=== PATIENT | female | born 2000 | race Caucasian/White ===

== ENCOUNTER 2022-12-11 19:45 | Inpatient (IN) | payer MEDICAID, SELFPAY ==
[2022-12-11] VITALS (42 sets, daily range): BP systolic 80–139; BP diastolic 54–86; PULSE 57–141; RESP 18–29; TEMP 34.5–36.9; O2SAT 64–98
--- NOTE | 2022-12-11 | ECG_ITS ---
Measurements Intervals [place] Rate: 124 P: 82 DC: 133 QRS: 61 QRSD: 101 T: 73 QT: 336 QTc: 484 Interpretive Statements SINUS TACHYCARDIA ST DEVIATION AND MODERATE T-WAVE ABNORMALITY, CONSIDER INFEROLATERAL ISCHEMIA [-0.1+ mV T WAVE IN II/aVF] COMPARED TO ECG 12/11/2022 20:17:32 NO SIGNIFICANT CHANGES Electronically Signed On 12-12-2022 14:20:44 CDT by Gina Narvaez M.D.
--- NOTE | ~2022-12-11 | XR_ITS ---
Portable chest x-ray Comparison: 12/11/2022 Clinical History: Respiratory failure Findings: Endotracheal tube and NG tube are in satisfactory positions. There is hazy left infrahilar airspace disease. Right lung clear. Cardiomediastinal silhouette is stable. Bones and soft tissues are unremarkable. Impression: Hazy left infrahilar airspace disease. Findings are consistent with pneumonia, either lingular or lef t lower lobe. Support tubes, as above. Reviewed, dictated and finalized at location . Impression: Hazy left infrahilar airspace disease. Findings are consistent with pneumonia, either lingular or left lower lobe. Support tubes, as above.
--- NOTE | ~2022-12-11 | CT_ITS ---
EXAMINATION: CT chest abdomen pelvis w con DATE: 12/12/2022 00:03 INDICATION: Chest injury. TECHNIQUE: Computed tomography (CT) of the chest, abdomen, and pelvis was performed with 100 mL Omnip aque 350 intravenous contrast. Automated exposure control and iterative reconstruction technique were employed. The dose-length product was 509.67 mGy-cm. COMPARISON: None FINDINGS: CHEST CT: There are centrilobular nodules and airspace opacities involving the upper lobes and lower lobes, lef t worse than right, consistent with pneumonia. No pleural effusion. The heart size is normal. No gale cardial effusion. The endotracheal tube tip is in expected position above the merlyn. The nasogastric tube tip is in the stomach. ABDOMEN/PELVIS CT: The liver, gallbladder, spleen, pancreas, adrenal glands, and kidneys are normal. There are no dilate d loops of bowel. There is physiologic fluid in the pelvis. There are no pathologically enlarged lymp h nodes. There is a left groin catheter with tip in left external iliac vein. The bones are unremarka ble. IMPRESSION: 1. Pneumonia involving the upper lobes and lower lobes, left worse than right. Reviewed, dictated and finalized at location E.
--- NOTE | ~2022-12-11 | XR_ITS ---
XR chest 1V portable DATE: 12/13/2022 05:42 INDICATION: Respiratory failure TECHNIQUE: Portable AP chest on 12/13/2022 at 0510 hours COMPARISON: 12/12/2022 portable AP chest at 0525 hours FINDINGS: ET tube in satisfactory position 4.1 cm above merlyn. NG tube in stomach. No central venous lines are noted. Normal heart size. No hilar or mediastinal enlargement. There is mild diminished left lower lung infiltrate since 12/12/2022. No pulmonary infiltrate or consolidation, pleural effusion or pulmonary vascular congestion or pneumo thorax is noted otherwise. IMPRESSION: Improvement of left lower lung infiltrate since 12/12/2022 Reviewed, dictated and finalized at location A.
--- NOTE | ~2022-12-11 | CT_ITS ---
EXAMINATION: CT brain wo con DATE: 12/11/2022 21:55 INDICATION: Seizure. TECHNIQUE: Computed tomography (CT) of the head was performed without intravenous contrast. The mA wa s adjusted according to patient size. Iterative reconstruction technique was employed. The dose-lengt h product was 605.33 mGy-cm. COMPARISON: None FINDINGS: There is no intracranial hemorrhage, acute infarction, or abnormal intracranial mass lesion . The ventricles are normal in size. The paranasal sinuses are clear. The orbits are normal. The mast oid air cells are normal. IMPRESSION: 1. Normal brain. Reviewed, dictated and finalized at location E. IMPRESSION: 1. Normal brain.
--- NOTE | ~2022-12-11 | XR_ITS ---
EXAMINATION: XR chest 1V portable DATE: 12/15/2022 05:53 INDICATION: Respiratory failure. TECHNIQUE: A single frontal view of the chest was obtained. COMPARISON: Chest single view 12/13/2022, chest CT 12/11/2022 FINDINGS: There are airspace opacities in left lower lobe. No pleural effusion or pneumothorax. The h eart size is normal. IMPRESSION: 1. Worsened left lower lobe airspace opacities, consistent with pneumonia. Reviewed, dictated and finalized at location A.
--- NOTE | ~2022-12-11 | US_ITS ---
Limited Abdominal Sonogram: Real-time sonographic imaging of the right upper quadrant was performed. Clinical History: Transaminitis Findings: The liver appears normal with no evidence of mass lesion or bile duct dilatation. Main por levy vein demonstrates normal direction of flow. The gallbladder is well distended, and appears normal with no evidence of gallstone or wall thickening. The common bile duct measures 3 mm. The visualize d pancreas, aorta, and IVC are unremarkable. Right kidney measures 10.6 cm in length, without hydrone phrosis, but is mildly echogenic. Impression: Mildly echogenic right kidney. Correlate for chronic medical renal disease. No other significant findings. Reviewed, dictated and finalized at location . Impression: Mildly echogenic right kidney. Correlate for chronic medical renal disease. No other significant findings.
--- NOTE | ~2022-12-11 | XR_ITS ---
EXAMINATION: XR chest 1V portable DATE: 12/11/2022 20:31 INDICATION: Intubated. TECHNIQUE: A single frontal view of the chest was obtained on 2 radiographs. COMPARISON: None. FINDINGS: There is no pneumonia, pleural effusion, or pneumothorax. The heart size is normal. The end otracheal tube tip is 5.0 cm above the merlyn. The nasogastric tube tip is in the stomach. IMPRESSION: 1. No acute cardiopulmonary disease. Reviewed, dictated and finalized at location E.
--- NOTE | ~2022-12-11 | XR_ITS ---
EXAMINATION: XR chest 1V portable DATE: 12/16/2022 05:56 INDICATION: Pneumonia. TECHNIQUE: A single frontal view of the chest was obtained. COMPARISON: Chest single view 12/15/2022 FINDINGS: There are airspace opacities in left mid and lower lung zones. No pleural effusion or pneum othorax. The heart size is normal. IMPRESSION: 1. Stable airspace opacities in left mid and lower lung zones, consistent with pneumonia. Reviewed, dictated and finalized at location A.
[2022-12-11] MEDS: SODIUM CHLORIDE 0.9% IV 1,000 ML 999 ML IV CONT ×2 (19:53→21:31)
[2022-12-11] MEDS: NALOXONE HCL INJ 2 MG/2 ML AMP IV PUSH (19:53)
--- NOTE | 2022-12-11 19:53 | ED.GENADULT ---
HPI - General Adult General Chief complaint: Cardiac Arrest/CPR Stated complaint: full arrest History of Present Illness HPI narrative: 22-year-old male transitioning to female presented to ED for evaluation of seizure activity lasted approximately 30 minutes. Family states that the patient is on hormonal placement therapy and does take Depakote 1000 mg twice daily for reported seizures. They report the patient does have approximately 1 seizure a week. Family states that the patient has been staying with a boyfriend over the last few days and has potentially not been taking their Depakote Related Data Home Medications Medication Instructions Recorded Confirmed buspirone 15 mg tablet 15 mg PO BID 12/11/22 12/11/22 divalproex 500 mg tablet,extended 1,000 mg PO BID 12/11/22 12/11/22 release 24 hr estradiol 1 mg tablet 3 mg PO HS 12/11/22 12/11/22 estradiol 2 mg tablet 2 mg PO DAILY 12/11/22 12/11/22 fluvoxamine 150 mg 150 mg PO BID 12/11/22 12/11/22 capsule,extended release 24 hr lithium carbonate 300 mg capsule 300 mg PO HS 12/11/22 12/11/22 progesterone micronized 100 mg 100 mg PO HS 12/11/22 12/11/22 capsule spironolactone 50 mg tablet 50 mg PO HS 12/11/22 12/11/22 Allergies Allergy/AdvReac Type Severity Reaction Status Date / Time SSRIs AdvReac Other Uncoded 12/11/22 22:50 Review of Systems Review of Systems: ROS unobtainable: Yes unobtainable due to medical condition PMFSH Past Medical History Medical History Borderline personality disorder OCD (obsessive compulsive disorder) Panic anxiety syndrome Seizure disorder 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 She went to school through the 9th grade and then quit due to difficulties learning due to her seizures. She has been transitioning from male to female since age 15. She is unemployed. She uses alcohol and marijuana on occasion. She is a lifelong nonsmoker. Code status: Full code Surrogate decision maker: Mother Smoking status: Never smoker Alcohol intake: unknown Substance use: current Substance use type: marijuana Gender identity (if verbalized by the patient): Female Spiritual care concerns: No Exam Narrative: APPEARANCE: Well appearing, no pain, no distress, well-nourished. HEAD: normocephalic, atraumatic. EYES: PERRLA/EOMI, conjunctivae clear. NOSE: Normal no drainage EARS:TMS clear with good light reflex. THROAT: Pharynx clear, no exudate. NECK: Supple. No adenopathy, no masses. RESPIRATORY: Airway patent, respirations nonlabored. Clear to auscultation bilaterally, no rales, rhonchi, wheezing. CARDIOVASCULAR: Regular rate and rhythm without murmurs rubs or gallops. ABDOMINAL: Soft, nontender, nondistended, normal bowel sounds MUSCULOSKELETAL: Moves all extremities. Strength/ROM intact, No edema, No calf tenderness. NEURO: Alert. Cranial nerves II through XII intact. Grossly intact SKIN: Warm, dry. 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 Upon arrival to the ED patient was in normal sinus rhythm and was not protecting her airway and had altered mental status. Ultimately patient was intubated. Head CT showed no acute intracranial abnormality. Central line was placed in th
[2022-12-11] MEDS: RAPID SEQUENCE INTUBATION KIT 1 EACH (20:02)
[2022-12-11 20:07] LABS: Basophils Absolute Auto 0.1 K/mm3 (0.0-0.1); Basophils Percent Auto 0.4 % (0.2-1.2); Eosinophils Absolute Auto 0.2 K/mm3 (0-0.3); Eosinophils Percent Auto 1.6 % (0-4.4); Hematocrit 44.6 % (37.0-47.0); Hemoglobin 12.1 g/dL (12.0-15.0); Immature Granulocyte Percent A 4.9 % (0-0.5); Immature Platelet Fraction Pct 6.7 % (0.9-11.2); Lymphocytes Absolute Auto 7.78 K/mm3 (0.9-3.2); Lymphocytes Percent Auto 54.8 % (18.3-44.2); Mean Corpuscular HGB Conc 27.1 g/dl (32-36); Mean Platelet Volume 12.9 fl (7.4-10.4); Monocytes Absolute Auto 0.8 K/mm3 (0.1-0.6); Monocytes Percent Auto 5.8 % (2.6-8.5); Neutrophils Absolute Auto 4.6 K/mm3 (1.3-6.7); Neutrophils Percent Auto 32.5 % (45.5-73.1); Platelet Count Result 203 k/mm3 (150-375); Red Blood Count 3.78 M/mm3 (4.2-5.4); Red Cell Distribution Width 11.4 % (11.5-14.5); White Blood Count 14.2 K/mm3 (4.5-10.0)
[2022-12-11 20:16] LABS: Acetaminophen < 10 ug/mL (10-30); Ethanol < 10 mg/dL (<10)
[2022-12-11 20:19] LABS: INR 2.9; Prothrombin Time 32.8 Seconds (11.1-14.7)
[2022-12-11 20:28] LABS: Alanine Aminotransferase 65 U/L (6-35); Albumin Level 4.1 g/dL (3.5-5.1); Alkaline Phosphatase 74 U/L (38-126); Aspartate Amino Transferase 114 U/L (14-36); Bilirubin,Total 0.4 mg/dL (0.2-1.3); Blood Urea Nitrogen 9 mg/dL (7-17); Calcium 10.5 mg/dL (8.4-10.2); Carbon Dioxide < 5 mmol/L (22-30); Chloride 103 mmol/L (98-107); Estimated Glomerular Filt Rate 35; Glucose 299 mg/dL (65-110); Magnesium 3.5 mg/dL (1.6-2.3); Potassium 4.5 mmol/L (3.4-5.0); Sodium 146 mmol/L (137-145)
[2022-12-11] MEDS: PROPOFOL IV EMULSION 100 ML 1.8 MG (20:30)
[2022-12-11 20:34] LABS: Phenytoin Dilantin < 3 ug/mL (10-20); Phosphorus 14.4 mg/dL (2.5-4.5)
[2022-12-11 20:45] LABS: Triglycerides 213 mg/dL (<150); Valproic Acid 24.8 ug/mL (50-120)
--- NOTE | 2022-12-11 21:03 | PC.NURSE ---
1939 - Pt arrived to ER, bagging in process 1941 - report given, pt placed on monitor and defib HR in 30s. 1945 - atropine given by LITZY Alford VORB by Dr. Kate 1947 - IV 20 RAC placed by LITZY Watson 1953 - Narcan given in [facility] by LITZY Watson 1954- 80/54, 90HR, RR25, 64% NRB 2001 - Dr. Kate decided to intubate, resp called, RSI kit pulled 2002 - Dr. Kate VORB 50 succ, 20 etomidate. 2004 - 57/31, 84HR, RR 28, 69% NRB 2007 - 59/32, 81HR, 20RR, 75% NRB 2008 - 50 succ, given by LITZY Watson in [facility] 20 etomidate given by LITZY Fall in [facility]. 2010 - Pt intubated by Dr. Kate, equal breath sounds noted, bilat chest rise and fall. 23 @ the tooth, 7.5, bagging by respiratory 2011 - 81/43, 106HR, 19RR, 98% bagging. 2012 - pt placed on vent by RT 2014 - IV 20 L hand placed by LITZY Alford. Dr. Kate VORB propofol sedation 2015 - 87/47, 116HR, 24RR, 98% on vent 2019 - 91/50, 110HR, 22RR, 97% on vent 2024 - OG placed by junior technical writer 2026 - temp calero placed by LITZY Alford 2029 - propofol started at 5mcg/min per protocol in [facility] for sedation EDP, Dr. Kate at bedside for placement of central line. 2099 - propofol infusion increased to 10 mcg/min per protocol at Dr. Kate request.
[2022-12-11 21:08] LABS: Platelet Estimate Adequate (Adequate)
[2022-12-11 21:09] LABS: Anisocytosis 1+ (NORMAL); Macrocytosis 1+ (NORMAL); Schistocytes None Seen (NORMAL)
[2022-12-11 21:18] LABS: Partial Thromboplastin Time > 200.0 SECONDS (22.3-36.8)
[2022-12-11 21:21] LABS: Alveolar/Arterial O2 Gradient 198.6 mmHg; Base Excess ABG -29.4 mEq/l (+/-2.0); Fractional Inspired Oxygen 70 %; HCO3 ABG 5.7 mEq/l (22.0-26.0); Oxygen Content ABG 18.9 %vol (16.0-22.0); Oxygen Saturation ABG 98.8 % (95.0-100.0); Oxyhemoglobin 97.4 % THb (90.0-100.0); PCO2 ABG 41.1 mmHg (35.0-45.0); PO2 ABG 256.3 mmHg (80.0-100.0); PO2 FiO2 Ratio Arterial Blood 3.66 %; Total Hemoglobin 13.4 g/dL (12.0-18.0)
[2022-12-11 21:23] LABS: Modified Allen's Test Pass; Site Drawn RIGHT RADIAL; pH ABG 6.761 (7.350-7.450)
[2022-12-11 21:24] LABS: Arterial Blood Gas PEEP 5 cmH2O; Arterial Blood Gas Tidal Volume 380 ml; Arterial Blood Gas Vent Mode CMV; Arterial Blood Gas Ventilator rate 24 /MIN; Device VENTILATOR
[2022-12-11] MEDS: SODIUM BICARBONATE 8.4% 50 MEQ/50 ML SYRINGE IV PUSH (21:29)
[2022-12-11 21:35] LABS: Appearance Urine Clear (Clear); Bilirubin Urine Negative (Negative); Blood Urine 3+ (Negative); Color Urine Light Yellow (Yellow); Glucose Urine UA 2+ mg/dL (Negative); Ketones Urine Negative (Negative); Leukocyte Esterase Ur Negative LEU/UL (Negative); Nitrate Urine Negative (Negative); Protein Urine 3+ mg/dL (Negative); Specific Grav Ur 1.025 (1.001-1.035); Urobilinogen Urine 0.2 mg/dL (<2.0); pH Urine 6.5 (5.0-9.0)
[2022-12-11] MEDS: SODIUM CHLORIDE 0.9% IV 1,000 ML 250 ML IV CONT (21:41)
[2022-12-11 21:50] LABS: Amphetamine Screen Urine Negative (Negative); Barbiturate Screen Urine Negative (Negative); Benzodiazepines Screen Urine Negative (Negative); Cannabinoid Screen Urine Positive (Negative); Cocaine Screen Urine Negative (Negative); Methadone Screen Urine Negative (Negative); Opiate Screen Urine Negative (Negative); Phencyclidine Screen Urine Negative (Negative)
[2022-12-11 21:51] LABS: Bacteria Urine Rare /hpf; Squamous Epithelial Cell Urine Occasional /hpf (Few)
--- NOTE | 2022-12-11 22:00 | PC.NURSE ---
Pt temp calero ready 94.6F. EDP notifed. Pt placed on jayshree hugger.
[2022-12-11 22:01] LABS: Add Urine Microscopic? YES
[2022-12-11 22:11] LABS: Lactic Acid Reflex 17.4 mmol/L (0.7-2.0)
[2022-12-11] MEDS: SODIUM BICARBONATE 8.4% 150 MEQ in DEXTROSE 5% 1,000 ML 950 ML 50 MEQ IV CONT (22:21)
[2022-12-11 22:25] LABS: Troponin I 0.013 ng/mL (0.000-0.034)
[2022-12-11] MEDS: FENTANYL 2,500MCG/NS250ML(*CRX 2,500 MCG/250 ML BAG IV CONT (22:35)
[2022-12-11] MEDS: levETIRAcetam 1000MG/NACL100ML 1,000 MG/100 ML BAG 400 MG IVPB (22:37)
[2022-12-11] MEDS: fentaNYL CITRATE INJ (*CRX) 100 MCG/2 ML VIAL IV PUSH (22:38)
[2022-12-11 22:50] LABS: Alveolar/Arterial O2 Gradient 221.8 mmHg; Base Excess ABG -18.8 mEq/l (+/-2.0); Carboxyhemoglobin 0.3 % THb (0-2.0); Fractional Inspired Oxygen 60 %; HCO3 ABG 10.2 mEq/l (22.0-26.0); Methemoglobin ABG 0.7 %THb (0-1.5); Oxygen Content ABG 18.4 %vol (16.0-22.0); Oxygen Saturation ABG 98.5 % (95.0-100.0); Oxyhemoglobin 96.9 % THb (90.0-100.0); PCO2 ABG 35.2 mmHg (35.0-45.0); PO2 ABG 167.3 mmHg (80.0-100.0); PO2 FiO2 Ratio Arterial Blood 2.79 %; Reduced Hemoglobin 2.1 %THb (0-5.0); Total Hemoglobin 13.3 g/dL (12.0-18.0)
[2022-12-11 22:51] LABS: Device VENTILATOR; Modified Allen's Test Pass; Site Drawn RIGHT RADIAL; pH ABG 7.082 (7.350-7.450)
[2022-12-11 22:52] LABS: Arterial Blood Gas PEEP 5 cmH2O; Arterial Blood Gas Tidal Volume 380 ml; Arterial Blood Gas Vent Mode CMV; Arterial Blood Gas Ventilator rate 24 /MIN
--- NOTE | 2022-12-11 23:07 | ECG_ITS ---
Measurements Intervals [place] Rate: 120 P: 79 ND: 152 QRS: 52 QRSD: 114 T: 78 QT: 417 QTc: 591 Interpretive Statements SINUS TACHYCARDIA ABNORMAL RHYTHM ECG NO PREVIOUS ECG AVAILABLE FOR COMPARISON Electronically Signed On 12-12-2022 14:17:59 CDT by Gina Narvaez M.D.
[2022-12-11] MEDS: PROPOFOL IV EMULSION 100 ML 7.06 MG IV CONT (23:13)
[2022-12-11 23:29] LABS: Creatine Kinase 610 U/L (30-135)
[2022-12-12] VITALS (55 sets, daily range): BP systolic 79–116; BP diastolic 46–71; PULSE 60–117; RESP 21–25; TEMP 35.8–37.8; O2SAT 91–100; BMI 19.1
--- NOTE | 2022-12-12 | ECHO_ITS ---
Patient Info Name: Yee Clemons Age: 22 years : 2000 Gender: Female Ht: 69 in Wt: 129 lbs BSA: 1.68 m2 HR: 92 bpm BP: 100 / 63 mmHg Heart Rhythm: Sinus Rhythm Technical Quality: Fair Exam Date: 12/12/2022 2:44 PM Exam Location: [facility] Pulmonary Patient Status: Inpatient Admit Date: 12/12/2022 Staff Ordering Physician: Emerson Chan MD Cardiology Fellow: Key Groves RDCS Attending Provider: Mckenzie Medellin DO Referring Physician: Dustin SORIANO; Exam Type: CA echo doppler color flow Study Info Indications - Cardiac arrest Complete two-dimensional, color flow and Doppler transthoracic echocardiogram is performed. Summary 1. Complete two-dimensional, color flow and Doppler transthoracic echocardiogram is performed. 2. Left ventricular chamber dimension is normal. 3. Left ventricular systolic function is normal, estimated at 55-60%. 4. There is no increased left ventricular wall thickness. 5. The left ventricular diastolic function is normal. 6. Dilated inferior vena cava with <50% collapse upon inspiration consistent with elevated right atrial pressure, 15 mmHg. 7. Recommend limited echo once the patient is extubated to re-evaluate her EF and her aortic valve as the image quality is suboptimal given off axis imaging since the patient is ventilated and supine. Left Ventricle Left ventricular chamber dimension is normal. Left ventricular systolic function is normal, estimated at 55-60%. There is no increased left ventricular wall thickness. The left ventricular diastolic function is normal. Right Ventricle Right ventricular chamber dimension is normal. Right ventricular systolic function is normal. Left Atria Left atrial chamber dimension is normal. Right Atria Right atrial chamber dimension is normal. Atrial Septum Intact interatrial septum visualized by color flow imaging. Aortic Valve The aortic valve is probable trileaflet. There is mild aortic valve sclerosis. There is no aortic valve stenosis. There is trace aortic valve regurgitation. Pulmonic Valve The pulmonic valve is normal. Mitral Valve The mitral valve has normal leaflets. There is no mitral valve stenosis. There is trace mitral valve regurgitation. Tricuspid Valve The tricuspid valve leaflets are normal. There is no significant tricuspid valve stenosis. There is trace tricuspid valve regurgitation. Other Findings Recommend limited echo once the patient is extubated to re-evaluate her EF and her aortic valve as the image quality is suboptimal given off axis imaging since the patient is ventilated and supine. Pericardium/Pleural The pericardium appears normal. There is trivial pericardial effusion. Inferior Vena Cava Dilated inferior vena cava with <50% collapse upon inspiration consistent with elevated right atrial pressure, 15 mmHg. Aorta The aortic root size at the sinus of Valsalva is normal. Left Ventricular Outflow Tract Name Value Normal LVOT 2D LVOT Diameter 2.0 cm LVOT Doppler LVOT Peak Gradient 2 mmHg LVOT Mean Gradient 1 mmHg LVOT VTI 9 cm LVOT VTI/AV VTI Ratio 0
--- NOTE | 2022-12-12 00:04 | PM.IMHP ---
H&P: HPI History of Present Illness Date/Time: 12/12/22 00:04 Chief Complaint: Seizure Narrative: 22-year-old transgender female with a past medical history of borderline personality disorder, OCD, anxiety and panic disorder, as well as social pragmatic communication disorder and epilepsy who presented to the ER via EMS from boyfriend's house with status epilepticus with seizure lasting 30 minutes. The patient has a long time history of tonic clonic seizures since the age of 12 or 13 years old. She has been having increasing frequency of seizures at least once per week this summer because she has not been compliant with her seizure medications. She had been away from home for the last 3 days staying with her boyfriend when she was known to not be taking her seizure medications. Her boyfriend witnessed her seizure. She called her family members who then told the boyfriend to call EMS if the patient continued to seize. They called the family a few minutes later and told them that she quit breathing. EMS was called at that time. On arrival bystanders were performing CPR. EMS resume CPR and a Jourdan device was utilized. Patient received 2 rounds of epinephrine with return of pulse. Patient was bradycardic with a rate of 30 in the field. She received fluid bolus EN route via an IO in the left leg. On arrival to the ER patient's heart rate was in the 110s. At some point the patient received atropine in the ER and her heart rate dropped to 57. I am assuming that this was done to see with patient's underlying rhythm was. Patient then returned into the 130s for heart rate. Evidently the patient had was not protecting her airway on arrival to the ER and was intubated. Chest x-ray was reviewed ET tube was 5 cm above the merlyn but CT of the chest abdomen pelvis performed later in the ER stay demonstrated appropriate position of ET tube. After intubation and stabilization the patient did wake up and was responding appropriately to the ER per ER report. Patient was giving the thumbs-up sign and shaking her head yes and no. CT did demonstrate bilateral upper lobe pneumonia patient had Unasyn ordered but not given. The patient was noted to be markedly acidotic in the ER and was started on a bicarb drip. She was started on sedation with propofol. And fentanyl was added. CT scan head in the ER demonstrated no acute intercranial process. Patient has central line placed in the right groin in the ER. She received L of normal saline. She has severe lactic acidosis with a lactic acid of 17.4. She received bicarb drip. Patient's mother reports that the patient takes lithium as needed. She denies patient is expressing any thoughts to hurt herself. Patient does not use drugs. She will occasionally drink alcoholic beverage does not have heavy alcohol consumption. She frequently smokes marijuana. Patient has been transitioning from male to female since about 15 years old. She is taking hormone therapy but has not had any surgical procedures. Patient's mother reports that when the patient does have seizures she usually does vomit with them. CT in the ER did demonstrate bilateral pneumonia. Patient will be treated with antibiotic therapy for likely aspiration. Source of information: Patient's mother who was at bedside. External medication reconciliation. 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
[2022-12-12 00:27] LABS: Reflex Lactic Acid Yes or No Add Lactic
[2022-12-12 00:36] LABS: Lactic Acid Reflex 11.4 mmol/L (0.7-2.0)
--- NOTE | 2022-12-12 02:05 | ADMGEN ---
This patient, Yee Clemons, was admitted to Intensive Care Unit-6. Patient/family oriented to hospital policies and general routines including ID bracelet, bed and alarms, visiting hours, pain management, procedures, bathroom and other care routines, personal items, smoking policy, room service/diet, and visiting hours. Information on how to activate the Rapid Response Team has been discussed. Patient/Family are encouraged to report perceived risks to care and to ask questions if they do not understand what they are told or what they should do.
[2022-12-12 02:08] LABS: Lactic Acid 6.3 mmol/L (0.7-2.0)
[2022-12-12 02:38] LABS: Glucose Point of Care 129 mg/dl (65-105)
[2022-12-12 03:01] LABS: Hemoglobin 12.5 g/dL (12.0-15.0); Mean Corpuscular HGB Conc 33.8 g/dl (32-36); Mean Corpuscular Hemoglobin 32.7 pg (26-34); Mean Corpuscular Volume 96.9 fl (80-100); Mean Platelet Volume 10.2 fl (7.4-10.4); Platelet Count Result 175 k/mm3 (150-375); Red Blood Count 3.82 M/mm3 (4.2-5.4); Red Cell Distribution Width 11.9 % (11.5-14.5)
[2022-12-12] MEDS: metroNIDAZOLE 500 MG/ISO 100ML 500 MG/100 ML BAG 100 MG IVPB ×4 (03:10→20:33)
[2022-12-12] MEDS: CEFEPIME 2 GM/NS 50 ML 2 GM/50 ML BAG IVPB ×2 (03:10→14:07)
[2022-12-12 03:12] LABS: INR 1.7; Prothrombin Time 21.3 Seconds (11.1-14.7)
[2022-12-12 03:13] LABS: Fibrinogen 165 mg/dl (215-510); Partial Thromboplastin Time 47.5 SECONDS (22.3-36.8)
[2022-12-12 03:34] LABS: Total Cells Counted 100
[2022-12-12 03:35] LABS: Band Neutrophils Percent 13 % (0-6); Lymphocytes Percent Manual 12 % (18-44); Monocytes Percent Manual 2 % (3-9); Neutrophils Percent Manual 73 % (46-73); Platelet Estimate Adequate (Adequate); Schistocytes None Seen (NORMAL)
[2022-12-12 03:39] LABS: D Dimer > 20.00 ug/mL (<0.48)
[2022-12-12 03:59] LABS: Lactic Acid Reflex 5.3 mmol/L (0.7-2.0)
[2022-12-12 05:08] LABS: Lithium < 0.2 mmol/L (0.6-1.2)
[2022-12-12 05:34] LABS: Alveolar/Arterial O2 Gradient 107.1 mmHg; Base Excess ABG -8.3 mEq/l (+/-2.0); Carboxyhemoglobin 0.2 % THb (0-2.0); Fractional Inspired Oxygen 35 %; HCO3 ABG 16.1 mEq/l (22.0-26.0); Methemoglobin ABG 0.4 %THb (0-1.5); Oxygen Content ABG 17.6 %vol (16.0-22.0); Oxygen Saturation ABG 97.8 % (95.0-100.0); Oxyhemoglobin 96.4 % THb (90.0-100.0); PCO2 ABG 29.9 mmHg (35.0-45.0); PO2 ABG 107.7 mmHg (80.0-100.0); PO2 FiO2 Ratio Arterial Blood 3.08 %; Total Hemoglobin 12.9 g/dL (12.0-18.0); pH ABG 7.348 (7.350-7.450)
[2022-12-12 05:36] LABS: Device VENTILATOR; Modified Allen's Test Pass; Site Drawn LEFT RADIAL
[2022-12-12 05:37] LABS: Arterial Blood Gas PEEP 5 cmH2O; Arterial Blood Gas Tidal Volume 380 ml; Arterial Blood Gas Vent Mode CMV; Arterial Blood Gas Ventilator rate 24 /MIN
[2022-12-12] MEDS: PROPOFOL IV EMULSION 100 ML 14.11 MG IV CONT (06:00)
--- NOTE | 2022-12-12 06:00 | ECG_ITS ---
Measurements Intervals [place] Rate: 85 P: 87 [place]: 123 QRS: 64 QRSD: 101 T: 82 QT: 342 QTc: 407 Interpretive Statements SINUS RHYTHM COMPARED TO ECG 12/11/2022 23:20:01 SINUS RHYTHM NOW PRESENT Electronically Signed On 12-12-2022 14:26:07 CDT by Gina Narvaez M.D.
[2022-12-12 06:34] LABS: Albumin Level 2.7 g/dL (3.5-5.1); Alkaline Phosphatase 85 U/L (38-126); Anion Gap 9 mmol/L (8-16); Aspartate Amino Transferase 440 U/L (14-36); Bilirubin,Total 0.2 mg/dL (0.2-1.3); Blood Urea Nitrogen 12 mg/dL (7-17); Calcium 6.2 mg/dL (8.4-10.2); Carbon Dioxide 17 mmol/L (22-30); Chloride 111 mmol/L (98-107); Estimated CRCL calculation 66 ml/min; Estimated Glomerular Filt Rate > 60; Glucose 124 mg/dL (65-110); Magnesium 2.1 mg/dL (1.6-2.3); Phosphorus 2.4 mg/dL (2.5-4.5); Sodium 137 mmol/L (137-145)
[2022-12-12] MEDS: CENTRAL LINE FLUSH 10 ML IV PUSH ×4 (06:34→21:48)
[2022-12-12 06:35] LABS: Potassium 2.4 mmol/L (3.4-5.0)
[2022-12-12 07:01] LABS: Alanine Aminotransferase 123 U/L (6-35)
[2022-12-12 07:12] LABS: Creatine Kinase 9936 U/L (30-135)
[2022-12-12] MEDS: POTASSIUM/PHOSPHORUS/SODIUM 1.5 GM PACKET 1 PACKET PO (07:51)
[2022-12-12] MEDS: KCL 40 MEQ/WATER 100 ML 100 ML 25 ML IVPB (07:52)
[2022-12-12] MEDS: CALCIUM GLUC 2,000 MG/NS 100ML 2,000 MG/100 ML BAG 100 MG IVPB (07:52)
[2022-12-12 07:59] LABS: PO2 ABG 90.1 mmHg (80.0-100.0); pH ABG < 6.700 (7.350-7.450)
[2022-12-12 08:00] LABS: Oxygen Content ABG 13.8 %vol (16.0-22.0); Total Hemoglobin 13.5 g/dL (12.0-18.0)
[2022-12-12 08:01] LABS: Carboxyhemoglobin 0.6 % THb (0-2.0); Oxyhemoglobin 71.8 % THb (90.0-100.0); Reduced Hemoglobin 26.6 %THb (0-5.0)
[2022-12-12] MEDS: busPIRone HCL 5 MG TABLET 15 MG FEED TUBE ×2 (08:05→16:22)
[2022-12-12] MEDS: SODIUM BICARBONATE 8.4% 50 MEQ/50 ML SYRINGE IV PUSH (08:05)
[2022-12-12] MEDS: POTASSIUM CHLORIDE 20 MEQ PACKET (FOR LIQUID) 40 MEQ FEED TUBE (08:05)
[2022-12-12] MEDS: levETIRAcetam 500MG/NACL 100ML 500 MG/100 ML BAG 400 MG IVPB ×2 (08:05→20:32)
[2022-12-12] MEDS: FAMOTIDINE 20 MG/2 ML VIAL IV PUSH ×2 (08:05→20:32)
[2022-12-12] MEDS: MINERAL OIL/WHITE PETROLATUM OINTMENT 1 APPLIC EACH EYE ×2 (08:06→20:34)
[2022-12-12] MEDS: NEOMYCIN/POLYMYXIN/BACITRACIN OINTMENT 15 GM TUBE 1 APPLIC TOPICAL (08:16)
--- NOTE | 2022-12-12 08:36 | WPDCNINT ---
Assessment and Plan Assessment and plan (1) Acute respiratory failure: Code(s): J96.00 - Acute respiratory failure, unspecified whether with hypoxia or hypercapnia Status: Acute Assessment and Plan: Acute respiratory failure likely related to status epilepticus, cardiac arrest -initial ABG showed a pH of 6.7 -ABGs this morning much improved with pH of 7.34, pCO2 of 29, PO2 of 107, HC03 16.1, O2 sats 97.8%. -chest x-ray this morning shows hazy left infrahilar airspace disease findings are consistent with pneumonia, either lingula or left lower lobe. -patient received Unasyn in the ER x1 dose -was started on cefepime, vancomycin and Flagyl (12/12) -12/12/2022: CT scan of the abdomen and pelvis showed pneumonia involving the upper lobes and lower lobes, left worse than right. -Sedated with fentanyl and propofol (2) Pneumonia: Code(s): J18.9 - Pneumonia, unspecified organism Status: Acute Assessment and Plan: Aspiration pneumonia, treatment as above (3) Status epilepticus, generalized convulsive: Code(s): G40.901 - Epilepsy, unspecified, not intractable, with status epilepticus Status: Acute Assessment and Plan: Patient presented with status epilepticus, with seizure activity > 30 minutes. Patient had not been taking her seizure medications -currently on valproic acid 500 mg IV q.6 hours -Keppra 500 mg IV q.12 hours -neurology has been consulted -no seizure since admission (4) Cardiac arrest: Code(s): I46.9 - Cardiac arrest, cause unspecified Status: Acute Assessment and Plan: Patient had a brief cardiac arrest which she received CPR, epinephrine x2 before obtaining ROSC. Likely PE arrest secondary to hypoxia due to status epilepticus/altered mental status -patient was following commands in the ER, was not a candidate for targeted temperature management -currently in sinus rhythm -will have Cardiology evaluate the patient -echocardiogram has been ordered (5) Acute kidney injury: Code(s): N17.9 - Acute kidney failure, unspecified Status: Acute Assessment and Plan: Patient presented with acute kidney injury likely related to cardiac arrest, status epilepticus, hypovolemia, infection/sepsis -adequately fluid-resuscitated -currently on bicarb infusion -will give additional IV fluid bolus this morning -creatinine is improving, 1.10 this morning (1.80 on admission) -continue to monitor urine output, renal function electrolytes -lactic acid trending down, continue to monitor (6) Rhabdomyolysis: Qualifiers: Rhabdomyolysis type: non-traumatic Qualified Code(s): M62.82 - Rhabdomyolysis Code(s): M62.82 - Rhabdomyolysis Status: Acute Assessment and Plan: Elevated CK levels likely related to tonic-clonic seizures and status epilepticus on admission -continue bicarb infusion at 150 mL/hr -will give additional IV fluid bolus in the ICU this morning -continue to monitor CK levels (7) Transaminitis: Code(s): R74.01 - Elevation of levels of liver transaminase levels Status: Acute Assessment and Plan: Transaminitis likely related to hypotension secondary to cardiac arrest/hypoperfusion -12/12/2022 RUQ ultrasound: Mildly echogenic right kidney, correlate for chronic medical renal disease, no other significant findings -hepatitis panel is negative -continue to monitor LFTs Plan DVT prophylaxis: Will start Lovenox Stress ulcer prophylaxis: Will start Protonix Nutrition: Will start tube feeds Code Status: Full code Critical Care Time Spent: 48 minutes Discussed with patient and mother in the room and updated them with patient's condition and plan of care. They are aware that patient has likely aspiration pneumonia secondary to status septum epilepticus and decreased or mental status, on antibiotics. Due to a high probability of clinically significant, life threatening deterioration, the patient re
--- NOTE | 2022-12-12 08:42 | PM.IMPN ---
Progress Note: A&P Assessment and Plan (1) Cardiac arrest: Code(s): I46.9 - Cardiac arrest, cause unspecified Status: Acute Assessment and Plan: Patient had a brief cardiac arrest which she received CPR, epinephrine x2 before obtaining ROSC. Likely PE arrest secondary to hypoxia due to status epilepticus/altered mental status -patient was following commands in the ER, was not a candidate for targeted temperature management -currently in sinus rhythm -will have Cardiology evaluate the patient -echocardiogram has been ordered (2) Status epilepticus, generalized convulsive: Code(s): G40.901 - Epilepsy, unspecified, not intractable, with status epilepticus Status: Acute Assessment and Plan: Patient presented with status epilepticus, with seizure activity > 30 minutes. Patient had not been taking her seizure medications -currently on valproic acid 500 mg IV q.6 hours -Keppra 500 mg IV q.12 hours -neurology has been consulted -no seizure since admission (3) Coagulopathy: Code(s): D68.9 - Coagulation defect, unspecified Status: Acute Assessment and Plan: Patient does have coagulopathy with elevated INR PTT and PT. Will check repeat coag panel including fibrinogen and D-dimer. Will avoid pharmacologic anticoagulation. Monitor for signs of bleeding. (4) Acute lactic acidosis: Code(s): E87.21 - Acute metabolic acidosis Status: Acute Assessment and Plan: Patient has severe lactic acidosis due to a combination of status epilepticus and cardiac arrest as well as acute infection.. The patient's lactic acid is improving with bicarb drip and ventilation. Will continue to monitor. (5) Transaminitis: Code(s): R74.01 - Elevation of levels of liver transaminase levels Status: Acute Assessment and Plan: Transaminitis likely related to hypotension secondary to cardiac arrest/hypoperfusion -12/12/2022 RUQ ultrasound: Mildly echogenic right kidney, correlate for chronic medical renal disease, no other significant findings -hepatitis panel is negative -continue to monitor LFTs (6) Acute kidney injury: Code(s): N17.9 - Acute kidney failure, unspecified Status: Acute Assessment and Plan: Patient presented with acute kidney injury likely related to cardiac arrest, status epilepticus, hypovolemia, infection/sepsis -adequately fluid-resuscitated -currently on bicarb infusion -will give additional IV fluid bolus this morning -creatinine is improving, 1.10 this morning (1.80 on admission) -continue to monitor urine output, renal function electrolytes -lactic acid trending down, continue to monitor (7) Rhabdomyolysis: Qualifiers: Rhabdomyolysis type: non-traumatic Qualified Code(s): M62.82 - Rhabdomyolysis Code(s): M62.82 - Rhabdomyolysis Status: Acute Assessment and Plan: Elevated CK levels likely related to tonic-clonic seizures and status epilepticus on admission -continue bicarb infusion at 150 mL/hr -will give additional IV fluid bolus in the ICU this morning -continue to monitor CK levels (8) Pneumonia: Code(s): J18.9 - Pneumonia, unspecified organism Status: Acute Assessment and Plan: Aspiration pneumonia, treatment as above (9) Hypertriglyceridemia: Code(s): E78.1 - Pure hyperglyceridemia Status: Acute Assessment and Plan: Patient's triglyceride levels are in the 200s. This will need to be monitored given use of propofol. (10) Acute respiratory failure: Code(s): J96.00 - Acute respiratory failure, unspecified whether with hypoxia or hypercapnia Status: Acute Assessment and Plan: Acute respiratory failure likely related to status epilepticus, cardiac arrest -initial ABG showed a pH of 6.7 -ABGs this morning much improved with pH of 7.34, pCO2 of 29, PO2 of 107, HC03 16.1, O2 sats 97.8%. -chest x-ray this morning shows hazy left infrah
[2022-12-12] MEDS: SODIUM CHLORIDE 0.9% IV 1,000 ML 999 ML IV CONT (08:51)
[2022-12-12] MEDS: SODIUM BICARBONATE 8.4% 150 MEQ in DEXTROSE 5% 1,000 ML 950 ML IV CONT ×2 (08:52→15:08)
[2022-12-12] MEDS: VALPROIC ACID INJ 500 MG in DEXTROSE 5% 100 ML 100 MG IVPB ×3 (08:52→20:33)
[2022-12-12] MEDS: ENOXAPARIN 40 MG/0.4 ML SYRINGE SUB-Q (09:07)
[2022-12-12] MEDS: PANTOPRAZOLE SODIUM IV 40 MG VIAL IV PUSH (09:07)
[2022-12-12 10:45] LABS: Hepatitis B Surface Antigen Negative (Negative)
[2022-12-12 10:51] LABS: HAV RESULT Negative (Negative); Hepatitis B Core IgM Result Negative (Negative)
[2022-12-12 11:03] LABS: Hepatitis C Virus Antibody Negative (Negative)
--- NOTE | 2022-12-12 11:31 | WPDNEURCNPN ---
Assessment and Plan Assessment and plan (1) Status epilepticus, generalized convulsive: Code(s): G40.901 - Epilepsy, unspecified, not intractable, with status epilepticus Status: Acute (2) Cardiac arrest: Code(s): I46.9 - Cardiac arrest, cause unspecified Status: Acute (3) Acute respiratory failure: Code(s): J96.00 - Acute respiratory failure, unspecified whether with hypoxia or hypercapnia Status: Acute (4) Pneumonia: Code(s): J18.9 - Pneumonia, unspecified organism Status: Acute Plan Yee Clemons is a 22 year old transgender female presenting due to status epilepticus in the setting of medication non-compliance. Course complicated by cardiac arrest and respiratory failure. - Continue VPA 500mg q 8 hrs -- no changes in dose since seizures occurred in the setting of non-compliance/subtherapeutic levels - Continue Keppra 500mg BID -- discontinue on discharge - Routine EEG not needed at this time as patient is following commands Consult date: 12/12/22 Reason for consult: Status epilepticus HPI: Yee Clemons is a 22 year old transgender female presenting due to status epilepticus. Patient has a history of childhood onset epilepsy and is currently on Depakote 1000mg BID. However, she was staying with her boyfriend and there are reports that she was not taking her medications. Patient was found seizing by boyfriend, which ultimately lasted greater than 30 minutes resulting in cardiac arrest. CPR was started by bystanders, and EMS eventually took over. She required two rounds of epinephrine before achieving ROSC. On arrival in the ED she was hypotensive. She was unable to protect her airway so she was intubated. She received load 1000mg load of Keppra. CT head did not show any acute process. VPA level was subtherapeutic at 24.8 and lithium level was 0.2. CT chest was concerning for pneumonia so she was started on antibiotics. UDS was positive only for cannabinoids. In the ED, eventually patient became more alert, following commands. She is currently intubated in the ICU, and sedated with fentanyl and propofol. She is on VPA 500mg q 6 hrs and Keppra 500mg BID. At home she takes only VPA 1000mg BID. She sees a Neurologist at [facility] in [facility]. Patient is able to communicate with board and is following commands. Review of Systems Review of Systems: ROS unobtainable: Yes unobtainable due to endotracheal tube PMFSH Past Medical History Medical History Borderline personality disorder Hypertriglyceridemia OCD (obsessive compulsive disorder) Panic anxiety syndrome Seizure disorder Social pragmatic communication disorder Transgender woman on hormone therapy Surgical History Surgical History History of circumcision At age 8 due to stricture Family History Family History Father Alcoholism Mother Coronary artery disease Nonocclusive Hypertension Diabetes mellitus Other Pulmonary embolism, Onset Age: 36 Grandparent HIT (heparin-induced thrombocytopenia) Social History Social History Social History: The patient lives at home with her mother, stepfather and brother. She went to school through the 9th grade and then quit due to difficulties learning due to her seizures. She has been transitioning from male to female since age 15. She is unemployed. She uses alcohol and marijuana on occasion. She is a lifelong nonsmoker. Code status: Full code Surrogate decision maker: Mother Smoking status: Never smoker Alcohol intake: unknown Substance use: current Substance use type: marijuana Gender identity (if verbalized by the patient): Female Spiritual care concerns: No Meds Home Medications and Allergies Home Medications Medication Instructions Recorded Confirmed Type buspirone 1
--- NOTE | 2022-12-12 13:04 | PM.CNCAR ---
Assessment and Plan Assessment and plan (1) Cardiac arrest: Code(s): I46.9 - Cardiac arrest, cause unspecified Status: Acute Assessment and Plan: Most likely PEA arrest due to hypoxia from status epilepticus Not a candidate for targeted temperature management as she was responding and following commands in the ER. Will obtain an echocardiogram. (2) Status epilepticus, generalized convulsive: Code(s): G40.901 - Epilepsy, unspecified, not intractable, with status epilepticus Status: Acute Assessment and Plan: Neurology has been consulted. (3) Acute respiratory failure: Code(s): J96.00 - Acute respiratory failure, unspecified whether with hypoxia or hypercapnia Status: Acute Assessment and Plan: Intubated, on mechanical ventilation. Management as per ICU team. (4) Pneumonia: Code(s): J18.9 - Pneumonia, unspecified organism Status: Acute Assessment and Plan: Most likely from aspiration. Management as per ICU team. (5) Rhabdomyolysis: Qualifiers: Rhabdomyolysis type: non-traumatic Qualified Code(s): M62.82 - Rhabdomyolysis Code(s): M62.82 - Rhabdomyolysis Status: Acute Assessment and Plan: CK levels are rising. Fluid resuscitation as per ICU team. (6) Acute kidney injury: Code(s): N17.9 - Acute kidney failure, unspecified Status: Acute Assessment and Plan: Improving. Plan Recommendations/plan discussed with Laminating Machine Operator. History of Present Illness History of Present Illness Consult date/time: 12/12/22 13:04 Requesting physician: Emerson Chan MD Consult reason: Other (Cardiac Arrest) Reason For Visit: Seizure, Cardiac Arrest Narrative: We are consulted for cardiac arrest. This is a 22 year old transgender female with history of epilepsy, borderline personality disorder, OCD, anxiety and panic disorder, social pragmatic communication disorder who presented to the ER via EMS from boyfriend's house with status epilepticus, cardiac arrest. Patient is intubated and sedated, therefore, all history obtained by patient's boyfriend, patient's family, medical chart and medical team. Boyfriend states that the patient began to have a tonic clonic seizure which lasted for several minutes, and then she became unresponsive and was not making any movements. Boyfriend tried to arouse and awaken patient, but she was not responding. Therefore, boyfriend started chest compressions (he did not check for a pulse beforehand). He was doing chest compressions for a few minutes before a police or patrol park officer arrived and took over chest compressions. Upon EMS arrival, they continued CPR with a Jourdan device. Given 2 rounds of Epinephrine with ROSC. She was reported to be bradycardia with a rate of 30 in the field. On arrival to the ER, patient's heart rate was 110s. Intubated in the ER. After intubation and stabilization the patient did wake up and was responding appropriately to the ER per ER report.? Patient was giving the thumbs-up sign and shaking her head yes and no.? CT did demonstrate bilateral upper lobe pneumonia. CT scan head in the ER demonstrated no acute intracranial process. Cooling protocol was not started as patient was responding in the ER. Labs notable for: WBC 14, now increased to 25 Initial pH <6.7, now 7.3 SCr of 1.8 , now 1.1 Lactate of 11.4, now 3 Elevated AST, ALT CK of 610, now 9936 UDS positive for cannabinoids Her troponin his negative Inital EKG with sinus tachycardia with global ST depressions Repeat EKG with sinus tachycardia with improvement of ST depressions EKG this morning with sinus rhythm without ST depressions Review of Systems Review of Systems: ROS unobtainable: Yes unobtainable due to endotracheal tube and unobtainable due to mental status PMFSH Past Medical History Medical History Borderline personality disorder Hypertriglyceridemia OCD (obsessive compulsive disorder)
[2022-12-12] MEDS: PROPOFOL IV EMULSION 100 ML 8.82 MG IV CONT (14:07)
[2022-12-12] MEDS: hetaSTARCH 6%/NACL 500 ML 250 ML IV CONT (15:03)
[2022-12-12] MEDS: NOREPINEPHRINE 8 MG/D5W 250 ML 8 MG/250 ML BAG 9.38 MG IV CONT (18:17)
[2022-12-12] MEDS: PROPOFOL IV EMULSION 100 ML 15.88 MG IV CONT (21:05)
[2022-12-12] MEDS: VANCOMYCIN 1,250 MG/NS 250 ML 1,250 MG/250 ML BAG 166.67 MG IVPB (21:47)
[2022-12-13] VITALS (60 sets, daily range): BP systolic 74–116; BP diastolic 43–81; PULSE 64–125; RESP 8–28; TEMP 37.4–38.5; O2SAT 86–100
[2022-12-13] MEDS: SODIUM BICARBONATE 8.4% 150 MEQ in DEXTROSE 5% 1,000 ML 950 ML IV CONT ×2 (01:19→09:07)
[2022-12-13] MEDS: PROPOFOL IV EMULSION 100 ML 15.88 MG IV CONT (03:31)
[2022-12-13] MEDS: CEFEPIME 2 GM/NS 50 ML 2 GM/50 ML BAG IVPB ×2 (03:33→14:31)
[2022-12-13] MEDS: metroNIDAZOLE 500 MG/ISO 100ML 500 MG/100 ML BAG 100 MG IVPB ×4 (03:33→21:30)
[2022-12-13] MEDS: VALPROIC ACID INJ 500 MG in DEXTROSE 5% 100 ML 100 MG IVPB ×4 (03:35→21:34)
[2022-12-13] MEDS: CENTRAL LINE FLUSH 10 ML IV PUSH ×3 (05:22→21:37)
[2022-12-13 05:36] LABS: Basophils Absolute Auto 0.1 K/mm3 (0.0-0.1); Basophils Percent Auto 0.4 % (0.2-1.2); Eosinophils Absolute Auto 0.1 K/mm3 (0-0.3); Eosinophils Percent Auto 0.6 % (0-4.4); Hematocrit 25.9 % (37.0-47.0); Hemoglobin 8.7 g/dL (12.0-15.0); Immature Granulocyte Absolute 0.09 K/mm3 (0.00-0.031); Immature Granulocyte Percent A 0.6 % (0-0.5); Immature Platelet Fraction Pct 4.3 % (0.9-11.2); Lymphocytes Absolute Auto 1.89 K/mm3 (0.9-3.2); Lymphocytes Percent Auto 12.1 % (18.3-44.2); Mean Corpuscular HGB Conc 33.6 g/dl (32-36); Mean Corpuscular Hemoglobin 32.3 pg (26-34); Mean Corpuscular Volume 96.3 fl (80-100); Mean Platelet Volume 10.5 fl (7.4-10.4); Monocytes Absolute Auto 0.6 K/mm3 (0.1-0.6); Neutrophils Absolute Auto 12.9 K/mm3 (1.3-6.7); Neutrophils Percent Auto 82.3 % (45.5-73.1); Platelet Count Result 89 k/mm3 (150-375); Red Blood Count 2.69 M/mm3 (4.2-5.4); Red Cell Distribution Width 12.2 % (11.5-14.5); White Blood Count 15.6 K/mm3 (4.5-10.0)
[2022-12-13 05:37] LABS: Base Excess ABG 2.3 mEq/l (+/-2.0); Carboxyhemoglobin 0.1 % THb (0-2.0); Fractional Inspired Oxygen 30 %; HCO3 ABG 23.9 mEq/l (22.0-26.0); Methemoglobin ABG 0.5 %THb (0-1.5); Oxygen Content ABG 17.6 %vol (16.0-22.0); Oxygen Saturation ABG 98.5 % (95.0-100.0); Oxyhemoglobin 96.8 % THb (90.0-100.0); PCO2 ABG 28.7 mmHg (35.0-45.0); PO2 ABG 110.2 mmHg (80.0-100.0); PO2 FiO2 Ratio Arterial Blood 3.67 %; Reduced Hemoglobin 2.6 %THb (0-5.0); Total Hemoglobin 12.8 g/dL (12.0-18.0)
[2022-12-13 05:39] LABS: Device VENTILATOR; Modified Allen's Test Pass; Site Drawn RIGHT RADIAL; pH ABG 7.539 (7.350-7.450)
[2022-12-13 05:40] LABS: Arterial Blood Gas PEEP 5 cmH2O; Arterial Blood Gas Tidal Volume 380 ml; Arterial Blood Gas Vent Mode CMV; Arterial Blood Gas Ventilator rate 24 /MIN
[2022-12-13 05:45] LABS: Lactic Acid Reflex 1.8 mmol/L (0.7-2.0)
[2022-12-13 05:48] LABS: INR 1.6; Prothrombin Time 20.3 Seconds (11.1-14.7)
[2022-12-13 05:49] LABS: Partial Thromboplastin Time 43.2 SECONDS (22.3-36.8)
[2022-12-13 05:50] LABS: Alanine Aminotransferase 326 U/L (6-35); Albumin Level 2.1 g/dL (3.5-5.1); Alkaline Phosphatase 67 U/L (38-126); Anion Gap 1 mmol/L (8-16); Bilirubin,Total 0.3 mg/dL (0.2-1.3); Blood Urea Nitrogen 8 mg/dL (7-17); CRP 7.5 mg/dL (<1.0); Calcium 6.7 mg/dL (8.4-10.2); Carbon Dioxide 28 mmol/L (22-30); Chloride 111 mmol/L (98-107); Estimated CRCL calculation 51 ml/min; Estimated Glomerular Filt Rate 51; Glucose 104 mg/dL (65-110); Phosphorus 2.7 mg/dL (2.5-4.5); Potassium 2.3 mmol/L (3.4-5.0); Sodium 140 mmol/L (137-145)
[2022-12-13] MEDS: POTASSIUM CHLORIDE 20 MEQ PACKET (FOR LIQUID) 40 MEQ FEED TUBE (06:18)
[2022-12-13] MEDS: KCL 40 MEQ/WATER 100 ML 100 ML 25 ML IVPB ×2 (06:18→14:27)
[2022-12-13 07:34] LABS: Creatine Kinase > 16000 U/L (30-135)
[2022-12-13 07:35] LABS: Aspartate Amino Transferase 1279 U/L (14-36)
[2022-12-13] MEDS: levETIRAcetam 500MG/NACL 100ML 500 MG/100 ML BAG 400 MG IVPB ×2 (09:06→21:29)
[2022-12-13] MEDS: busPIRone HCL 5 MG TABLET 15 MG FEED TUBE ×2 (09:07→18:11)
[2022-12-13] MEDS: LACTATED RINGERS 1,000 ML 999 ML IV CONT (09:07)
[2022-12-13] MEDS: PANTOPRAZOLE SODIUM IV 40 MG VIAL IV PUSH (09:08)
[2022-12-13] MEDS: MINERAL OIL/WHITE PETROLATUM OINTMENT 1 APPLIC EACH EYE (09:09)
[2022-12-13] MEDS: NEOMYCIN/POLYMYXIN/BACITRACIN OINTMENT 15 GM TUBE 1 APPLIC TOPICAL (09:09)
[2022-12-13 09:42] LABS: Basophils Percent Auto 0.2 % (0.2-1.2); Eosinophils Absolute Auto 0.1 K/mm3 (0-0.3); Eosinophils Percent Auto 0.7 % (0-4.4); Hematocrit 25.7 % (37.0-47.0); Hemoglobin 8.8 g/dL (12.0-15.0); Immature Granulocyte Absolute 0.16 K/mm3 (0.00-0.031); Immature Platelet Fraction Pct 4.3 % (0.9-11.2); Lymphocytes Absolute Auto 1.45 K/mm3 (0.9-3.2); Lymphocytes Percent Auto 8.7 % (18.3-44.2); Mean Corpuscular HGB Conc 34.2 g/dl (32-36); Mean Corpuscular Hemoglobin 32.8 pg (26-34); Mean Corpuscular Volume 95.9 fl (80-100); Monocytes Absolute Auto 0.8 K/mm3 (0.1-0.6); Monocytes Percent Auto 4.9 % (2.6-8.5); Neutrophils Absolute Auto 14.2 K/mm3 (1.3-6.7); Neutrophils Percent Auto 84.5 % (45.5-73.1); Platelet Count Result 83 k/mm3 (150-375); Red Blood Count 2.68 M/mm3 (4.2-5.4); Red Cell Distribution Width 12.5 % (11.5-14.5); White Blood Count 16.7 K/mm3 (4.5-10.0)
--- NOTE | 2022-12-13 09:51 | PM.PNCARD ---
Progress Note: A&P Assessment and Plan (1) Cardiac arrest: Code(s): I46.9 - Cardiac arrest, cause unspecified Status: Acute Assessment and Plan: Possible pEA arrest due to hypoxia from status epilepticus Echo shows a grossly normal ejection fraction but difficult study with off axis imaging. I will order an echo after extubation for reassessment of her EF and aortic valve (2) Status epilepticus, generalized convulsive: Code(s): G40.901 - Epilepsy, unspecified, not intractable, with status epilepticus Status: Acute Assessment and Plan: Neurology has been consulted. (3) Acute respiratory failure: Code(s): J96.00 - Acute respiratory failure, unspecified whether with hypoxia or hypercapnia Status: Acute Assessment and Plan: Intubated, on mechanical ventilation. Management as per ICU team. (4) Pneumonia: Code(s): J18.9 - Pneumonia, unspecified organism Status: Acute Assessment and Plan: Most likely from aspiration. Management as per ICU team. (5) Rhabdomyolysis: Qualifiers: Rhabdomyolysis type: non-traumatic Qualified Code(s): M62.82 - Rhabdomyolysis Code(s): M62.82 - Rhabdomyolysis Status: Acute Assessment and Plan: CK levels are rising. Fluid resuscitation as per ICU team. (6) Acute kidney injury: Code(s): N17.9 - Acute kidney failure, unspecified Status: Acute Assessment and Plan: Improving. Subjective Date/time seen: 12/13/22 09:51 Interval history: 22-year-old transgender female with a past medical history of borderline personality disorder, OCD, anxiety and panic disorder, as well as social pragmatic communication disorder and epilepsy who presented to the ER via EMS from boyfriend's house with status epilepticus with seizure lasting 30 minutes. Date of service 12/13/2022: Weaning sedation for extubation. She denies any chest pain. Review of Systems Cardiovascular: Comments: No chest pain Respiratory: Comments: No shortness of breath Exam Const: General: no acute distress HENMT: Other: OETT in place Resp: Auscultation: diminished lung sounds Other: On mechanical ventilation Cardio: Rate: regular rate Rhythm: regular rhythm Heart sounds: no murmurs Skin: General skin exam: normal color Extrem: General: normal to inspection Objective Data Vital Signs Vital Signs: Vital Signs - 24 hr 12/12/22 09:53 12/12/22 10:00 12/12/22 10:26 Temperature 37.7 C H Pulse Rate 92 87 96 Respiratory Rate 24 H 24 H Blood Pressure 94/55 L Pulse Oximetry 99 Oxygen Delivery Fraction of Inspired Oxygen 12/12/22 11:18 12/12/22 11:53 12/12/22 11:58 Temperature Pulse Rate 95 95 Respiratory Rate 24 H Blood Pressure Pulse Oximetry 100 100 Oxygen Delivery Mechanical Ventilation Mechanical Ventilation Fraction of Inspired Oxygen 30 30 30 12/12/22 12:00 12/12/22 12:00 12/12/22 12:24 Temperature 37.8 C H Pulse Rate 94 96 103 H Respiratory Rate 24 H 24 H Blood Pressure 90/58 L Pulse Oximetry 100 Oxygen Delivery Fraction of Inspired Oxygen 12/12/22 12:24 12/12/22 13:01 12/12/22 13:33 Temperature Pulse Rate 100 100 99 Respiratory Rate 24 H 24 H 24 H Blood Pressure Pulse Oximetry Oxygen Delivery Fraction of Inspired Oxygen 12/12/22 13:45 12/12/22 13:46 12/12/22 13:51 Temperature 37.8 C H Pulse Rate 98 99 98 Respiratory Rate 24 H 24 H Blood Pressure 79/52 L Pulse Oximetry 100 Oxygen Delivery Fraction of Inspired Oxygen 12/12/22 14:07 12/12/22 14:07 12/12/22 14:29 Temperature Pulse Rate 97 97 Respiratory Rate 24 H 24 H Blood Pressure 84/61 L Pulse Oximetry Oxygen Delivery Fraction of Inspired Oxygen 12/12/22 14:58 12/12/22 15:27 12/12/22 15:50 Temperature Pulse Rate 105 H 99 Respiratory Rate 24 H Blood Pressure Pu
--- NOTE | 2022-12-13 09:55 | PC.NURSE ---
Patient placed on spont. breathing trial at 0945 per MD present at bedside. RN notified RT at 0949 for patient having respiratory rates of 8-10 breaths per minute on breathing trial, tidal volumes ranging from 110 to 1150 mls, and a drop in oxygen saturations noted at 87% on breathing trial at 25% FiO2. Patient previously 100% on 25% FiO2 on previous ventilator settings. MD notified.
[2022-12-13] MEDS: dexmedeTOMIDine 400 MCG/100 ML 400 MCG/100 ML BAG IV CONT (10:47)
[2022-12-13] MEDS: ONDANSETRON INJ 4 MG/2 ML VIAL IV PUSH (11:01)
[2022-12-13 11:15] LABS: Iron 11 ug/dL (37-170)
--- NOTE | 2022-12-13 11:20 | PM.IMPN ---
Progress Note: A&P Assessment and Plan (1) Cardiac arrest: Code(s): I46.9 - Cardiac arrest, cause unspecified Status: Acute Assessment and Plan: Patient had a brief cardiac arrest which she received CPR, epinephrine x2 before obtaining ROSC. Likely PE arrest secondary to hypoxia due to status epilepticus/altered mental status -patient was following commands in the ER, was not a candidate for targeted temperature management -currently in sinus rhythm Appreciate cardiology consultation, echo showed an EF of 55-60% without any significant abnormalities noted cardiology recommending a repeat echo after extubation (2) Status epilepticus, generalized convulsive: Code(s): G40.901 - Epilepsy, unspecified, not intractable, with status epilepticus Status: Acute Assessment and Plan: Patient presented with status epilepticus, with seizure activity > 30 minutes. Patient had not been taking her seizure medications -currently on valproic acid 500 mg IV q.6 hours -Keppra 500 mg IV q.12 hours -neurology has been consulted -no seizure since admission (3) Coagulopathy: Code(s): D68.9 - Coagulation defect, unspecified Status: Acute Assessment and Plan: Patient does have coagulopathy with elevated INR PTT and PT. Will check repeat coag panel including fibrinogen and D-dimer. Will avoid pharmacologic anticoagulation. Monitor for signs of bleeding. (4) Acute lactic acidosis: Code(s): E87.21 - Acute metabolic acidosis Status: Acute Assessment and Plan: Patient has severe lactic acidosis due to a combination of status epilepticus and cardiac arrest as well as acute infection.. The patient's lactic acid is improving with bicarb drip and ventilation. Will continue to monitor. (5) Transaminitis: Code(s): R74.01 - Elevation of levels of liver transaminase levels Status: Acute Assessment and Plan: Transaminitis likely related to hypotension secondary to cardiac arrest/hypoperfusion -12/12/2022 RUQ ultrasound: Mildly echogenic right kidney, correlate for chronic medical renal disease, no other significant findings -hepatitis panel is negative -continue to monitor LFTs (6) Acute kidney injury: Code(s): N17.9 - Acute kidney failure, unspecified Status: Acute Assessment and Plan: Patient presented with acute kidney injury likely related to cardiac arrest, status epilepticus, hypovolemia, infection/sepsis -adequately fluid-resuscitated -currently on bicarb infusion -will give additional IV fluid bolus this morning -creatinine is improving, 1.10 this morning (1.80 on admission) -continue to monitor urine output, renal function electrolytes -lactic acid trending down, continue to monitor (7) Rhabdomyolysis: Qualifiers: Rhabdomyolysis type: non-traumatic Qualified Code(s): M62.82 - Rhabdomyolysis Code(s): M62.82 - Rhabdomyolysis Status: Acute Assessment and Plan: Elevated CK levels likely related to tonic-clonic seizures and status epilepticus on admission -continue bicarb infusion at 150 mL/hr -will give additional IV fluid bolus in the ICU this morning -continue to monitor CK levels (8) Pneumonia: Code(s): J18.9 - Pneumonia, unspecified organism Status: Acute Assessment and Plan: Aspiration pneumonia, treatment as above (9) Hypertriglyceridemia: Code(s): E78.1 - Pure hyperglyceridemia Status: Acute Assessment and Plan: Patient's triglyceride levels are in the 200s. This will need to be monitored given use of propofol. (10) Acute respiratory failure: Code(s): J96.00 - Acute respiratory failure, unspecified whether with hypoxia or hypercapnia Status: Acute Assessment and Plan: Acute respiratory failure likely related to status epilepticus, cardiac arrest -initial ABG showed a pH of 6.7 -ABGs this morning much improved with pH of 7.34, pCO2 of 2
[2022-12-13 11:25] LABS: Percent Iron Saturation 6 % (20-50)
[2022-12-13 11:38] LABS: Anion Gap 4 mmol/L (8-16); Blood Urea Nitrogen 7 mg/dL (7-17); Calcium 7.4 mg/dL (8.4-10.2); Carbon Dioxide 23 mmol/L (22-30); Chloride 113 mmol/L (98-107); Estimated CRCL calculation 55 ml/min; Estimated Glomerular Filt Rate 56; Glucose 101 mg/dL (65-110); Potassium 3.3 mmol/L (3.4-5.0); Sodium 140 mmol/L (137-145)
[2022-12-13 11:58] LABS: Glucose Point of Care 88 mg/dl (65-105)
[2022-12-13 12:33] LABS: Alveolar/Arterial O2 Gradient 37.2 mmHg; Base Excess ABG -0.7 mEq/l (+/-2.0); Fractional Inspired Oxygen 25 %; HCO3 ABG 18.3 mEq/l (22.0-26.0); Methemoglobin ABG 0.5 %THb (0-1.5); Oxygen Content ABG 14.9 %vol (16.0-22.0); Oxyhemoglobin 96.9 % THb (90.0-100.0); PO2 ABG 120.7 mmHg (80.0-100.0); PO2 FiO2 Ratio Arterial Blood 4.83 %; Reduced Hemoglobin 2.6 %THb (0-5.0); Total Hemoglobin 10.8 g/dL (12.0-18.0)
[2022-12-13 12:35] LABS: Device VENTILATOR; Modified Allen's Test Pass; PCO2 ABG 17.1 mmHg (35.0-45.0); Site Drawn RIGHT RADIAL; pH ABG 7.647 (7.350-7.450)
[2022-12-13 12:36] LABS: Arterial Blood Gas Vent Mode SPONTANEOUS
[2022-12-13 12:37] LABS: Arterial Blood Gas PEEP 5 cmH2O; Arterial Blood Gas Pressure Support 5 cmH2O
[2022-12-13] MEDS: ACETAMINOPHEN ELIXIR 325 MG/10.15 ML UDC 650 MG PO (12:37)
--- NOTE | 2022-12-13 12:52 | PC.NURSE ---
Patient extubated at 1245 per RT per MD orders. Patient placed on 2L NC. Oxygen saturations currently 100%.
--- NOTE | 2022-12-13 12:58 | WPDINTPN ---
Progress Note: A&P Assessment and Plan (1) Acute respiratory failure: Code(s): J96.00 - Acute respiratory failure, unspecified whether with hypoxia or hypercapnia Status: Acute Assessment and Plan: Acute respiratory failure likely related to status epilepticus, cardiac arrest -initial ABG showed a pH of 6.7 -ABGs this morning much improved with pH of 7.34, pCO2 of 29, PO2 of 107, HC03 16.1, O2 sats 97.8%. -chest x-ray this morning shows hazy left infrahilar airspace disease findings are consistent with pneumonia, either lingula or left lower lobe. -patient received Unasyn in the ER x1 dose -continue cefepime, vancomycin and Flagyl (12/12) -12/12/2022: CT scan of the abdomen and pelvis showed pneumonia involving the upper lobes and lower lobes, left worse than right. -chest x-ray this morning: ?Improvement of left lower lung infiltrate since 12/12/2022? -Sedated with fentanyl and propofol -patient was placed on SBT, started on Precedex infusion, fentanyl and propofol discontinue -12/13: patient was successfully extubated - (2) Pneumonia: Code(s): J18.9 - Pneumonia, unspecified organism Status: Acute Assessment and Plan: Aspiration pneumonia, treatment as above (3) Status epilepticus, generalized convulsive: Code(s): G40.901 - Epilepsy, unspecified, not intractable, with status epilepticus Status: Acute Assessment and Plan: Patient presented with status epilepticus, with seizure activity > 30 minutes. Patient had not been taking her seizure medications -currently on valproic acid 500 mg IV q.6 hours -Keppra 500 mg IV q.12 hours - appreciate neurology consult -no seizure since admission (4) Cardiac arrest: Code(s): I46.9 - Cardiac arrest, cause unspecified Status: Acute Assessment and Plan: Patient had a brief cardiac arrest which she received CPR, epinephrine x2 before obtaining ROSC. Likely PE arrest secondary to hypoxia due to status epilepticus/altered mental status -patient was following commands in the ER, was not a candidate for targeted temperature management -currently in sinus rhythm -Appreciate cardiology following the pt -12/12: echocardiogram ummary ? 1. Complete two-dimensional, color flow and Doppler transthoracic echocardiogram is performed. ? 2. Left ventricular chamber dimension is normal. ? 3. Left ventricular systolic function is normal, estimated at 55-60%. ? 4. There is no increased left ventricular wall thickness. ? 5. The left ventricular diastolic function is normal. ? 6. Dilated inferior vena cava with <50% collapse upon inspiration consistent with elevated right atrial pressure, 15 mmHg. ? 7. Recommend limited echo once the patient is extubated to re-evaluate her EF and her aortic valve as the image quality is suboptimal given off axis imaging since the patient is ventilated and supine. (5) Acute kidney injury: Code(s): N17.9 - Acute kidney failure, unspecified Status: Acute Assessment and Plan: Patient presented with acute kidney injury likely related to cardiac arrest, status epilepticus, hypovolemia, infection/sepsis -adequately fluid-resuscitated -currently on bicarb infusion -will give additional IV fluid bolus this morning -creatinine is improving, (1.80 on admission) -continue to monitor urine output, renal function electrolytes -lactic acid normalized (6) Rhabdomyolysis: Qualifiers: Rhabdomyolysis type: non-traumatic Qualified Code(s): M62.82 - Rhabdomyolysis Code(s): M62.82 - Rhabdomyolysis Status: Acute Assessment and Plan: Elevated CK levels likely related to tonic-clonic seizures and status epilepticus on admission -continue bicarb infusion at 150 mL/hr -gave additional IV fluid bolus in the ICU this morning -continue to monitor CK levels (7) Transaminitis: Code(s): R74.01 - Elevation of levels of liver transaminase levels Status: Acute Assessment and
[2022-12-13] MEDS: LACTATED RINGERS 1,000 ML 100 ML IV CONT (14:28)
[2022-12-13] MEDS: NOREPINEPHRINE 8 MG/D5W 250 ML 8 MG/250 ML BAG 9.38 MG IV CONT (15:07)
[2022-12-13 15:40] LABS: Vancomycin Trough 6.3 ug/mL (10.0-20.0)
[2022-12-13 18:30] LABS: Glucose Point of Care 84 mg/dl (65-105)
[2022-12-14] VITALS (27 sets, daily range): BP systolic 89–107; BP diastolic 57–80; PULSE 55–88; RESP 12–24; TEMP 36.9–38.3; O2SAT 94–100
[2022-12-14 00:27] LABS: Glucose Point of Care 77 mg/dl (65-105)
[2022-12-14] MEDS: ACETAMINOPHEN ELIXIR 325 MG/10.15 ML UDC 650 MG PO (01:11)
[2022-12-14] MEDS: LACTATED RINGERS 1,000 ML 100 ML IV CONT (03:03)
[2022-12-14] MEDS: CEFEPIME 2 GM/NS 50 ML 2 GM/50 ML BAG IVPB ×2 (03:05→14:00)
[2022-12-14] MEDS: metroNIDAZOLE 500 MG/ISO 100ML 500 MG/100 ML BAG 100 MG IVPB ×4 (03:09→21:38)
[2022-12-14] MEDS: VALPROIC ACID INJ 500 MG in DEXTROSE 5% 100 ML 100 MG IVPB ×4 (03:38→22:01)
[2022-12-14 05:17] LABS: Basophils Percent Auto 0.2 % (0.2-1.2); Eosinophils Absolute Auto 0.1 K/mm3 (0-0.3); Eosinophils Percent Auto 0.5 % (0-4.4); Hematocrit 26.9 % (37.0-47.0); Hemoglobin 8.8 g/dL (12.0-15.0); Immature Granulocyte Absolute 0.13 K/mm3 (0.00-0.031); Immature Granulocyte Percent A 0.8 % (0-0.5); Lymphocytes Absolute Auto 1.46 K/mm3 (0.9-3.2); Lymphocytes Percent Auto 9.5 % (18.3-44.2); Mean Corpuscular HGB Conc 32.7 g/dl (32-36); Mean Corpuscular Hemoglobin 32.5 pg (26-34); Mean Corpuscular Volume 99.3 fl (80-100); Mean Platelet Volume 11.4 fl (7.4-10.4); Monocytes Absolute Auto 0.8 K/mm3 (0.1-0.6); Monocytes Percent Auto 5.5 % (2.6-8.5); Neutrophils Absolute Auto 12.8 K/mm3 (1.3-6.7); Neutrophils Percent Auto 83.5 % (45.5-73.1); Platelet Count Result 73 k/mm3 (150-375); Red Blood Count 2.71 M/mm3 (4.2-5.4); Red Cell Distribution Width 12.2 % (11.5-14.5); White Blood Count 15.3 K/mm3 (4.5-10.0)
[2022-12-14] MEDS: ONDANSETRON INJ 4 MG/2 ML VIAL IV PUSH ×2 (05:22→20:14)
[2022-12-14 05:29] LABS: INR 1.3; Prothrombin Time 17.4 Seconds (11.1-14.7)
[2022-12-14 05:30] LABS: Partial Thromboplastin Time 42.8 SECONDS (22.3-36.8)
[2022-12-14 05:36] LABS: Lactic Acid Reflex 1.3 mmol/L (0.7-2.0)
[2022-12-14 05:38] LABS: Glucose Point of Care 90 mg/dl (65-105)
[2022-12-14 05:47] LABS: Alanine Aminotransferase 377 U/L (6-35); Albumin Level 2.4 g/dL (3.5-5.1); Alkaline Phosphatase 79 U/L (38-126); Anion Gap 1 mmol/L (8-16); Bilirubin,Total 0.5 mg/dL (0.2-1.3); Blood Urea Nitrogen 8 mg/dL (7-17); Calcium 7.7 mg/dL (8.4-10.2); Carbon Dioxide 26 mmol/L (22-30); Chloride 111 mmol/L (98-107); Estimated CRCL calculation 59 ml/min; Estimated Glomerular Filt Rate > 60; Glucose 102 mg/dL (65-110); Magnesium 1.8 mg/dL (1.6-2.3); Phosphorus 2.8 mg/dL (2.5-4.5); Potassium 3.6 mmol/L (3.4-5.0); Sodium 138 mmol/L (137-145)
[2022-12-14] MEDS: CENTRAL LINE FLUSH 10 ML IV PUSH ×3 (06:46→21:51)
--- NOTE | 2022-12-14 07:56 | P.PNIM_ITS ---
Progress Note: A&P Assessment and Plan (1) Acute respiratory failure: Code(s): J96.00 - Acute respiratory failure, unspecified whether with hypoxia or hypercapnia Status: Acute Assessment and Plan: Acute respiratory failure likely related to status epilepticus, cardiac arrest -initial ABG showed a pH of 6.7 -ABGs this morning much improved with pH of 7.34, pCO2 of 29, PO2 of 107, HC03 16.1, O2 sats 97.8%. -chest x-ray this morning shows hazy left infrahilar airspace disease findings are consistent with pneumonia, either lingula or left lower lobe. -patient received Unasyn in the ER x1 dose -continue cefepime, vancomycin and Flagyl (12/12) -12/12/2022: CT scan of the abdomen and pelvis showed pneumonia involving the upper lobes and lower lobes, left worse than right. -chest x-ray this morning: ?Improvement of left lower lung infiltrate since 12/12/2022? -Sedated with fentanyl and propofol -patient was placed on SBT, started on Precedex infusion, fentanyl and propofol discontinue -12/13: patient was successfully extubated (2) Pneumonia: Code(s): J18.9 - Pneumonia, unspecified organism Status: Acute Assessment and Plan: Aspiration pneumonia, treatment as above (3) Status epilepticus, generalized convulsive: Code(s): G40.901 - Epilepsy, unspecified, not intractable, with status epilepticus Status: Acute Assessment and Plan: Patient presented with status epilepticus, with seizure activity > 30 minutes. Patient had not been taking her seizure medications -currently on valproic acid 500 mg IV q.6 hours -Keppra 500 mg IV q.12 hours - appreciate neurology consult -no seizure since admission (4) Cardiac arrest: Code(s): I46.9 - Cardiac arrest, cause unspecified Status: Acute Assessment and Plan: Patient had a brief cardiac arrest which she received CPR, epinephrine x2 before obtaining ROSC. Likely PE arrest secondary to hypoxia due to status epilepticus/altered mental status -patient was following commands in the ER, was not a candidate for targeted temperature management -currently in sinus rhythm -Appreciate cardiology following the pt -12/12: echocardiogram ummary ? 1. Complete two-dimensional, color flow and Doppler transthoracic echocardiogram is performed. ? 2. Left ventricular chamber dimension is normal. ? 3. Left ventricular systolic function is normal, estimated at 55-60%. ? 4. There is no increased left ventricular wall thickness. ? 5. The left ventricular diastolic function is normal. ? 6. Dilated inferior vena cava with <50% collapse upon inspiration consistent with elevated right atrial pressure, 15 mmHg. ? 7. Recommend limited echo once the patient is extubated to re-evaluate her EF and her aortic valve as the image quality is suboptimal given off axis imaging since the patient is ventilated and supine. (5) Acute kidney injury: Code(s): N17.9 - Acute kidney failure, unspecified Status: Acute Assessment and Plan: Patient presented with acute kidney injury likely related to cardiac arrest, status epilepticus, hypovolemia, infection/sepsis -adequately fluid-resuscitated -currently on bicarb infusion -will give additional IV fluid bolus this morning -creatinine is improving, (1.80 on admission) -continue to monitor urine output, renal function electrolytes -lactic acid normalized (6) Rhabdomyolysis: Qualifiers: Rhabdomyolysis type: non-traumatic Qualified Code(s): M62.82 - Rhabdomyolysis Code(s): M62.82 - Rhabdomyolysis Status: Acute Assessment and Plan:
[2022-12-14 08:22] LABS: Aspartate Amino Transferase 1210 U/L (14-36)
[2022-12-14 08:37] LABS: Creatine Kinase > 16000 U/L (30-135)
--- NOTE | 2022-12-14 08:48 | WPDINTPN ---
Progress Note: A&P Assessment and Plan (1) Acute respiratory failure: Code(s): J96.00 - Acute respiratory failure, unspecified whether with hypoxia or hypercapnia Status: Acute Assessment and Plan: Acute respiratory failure likely related to status epilepticus, cardiac arrest -12/13: patient successfully extubated -patient received Unasyn in the ER x1 dose -continues to have leukocytosis, will continue cefepime, vancomycin and Flagyl (12/12) -12/12/2022: CT scan of the abdomen and pelvis showed pneumonia involving the upper lobes and lower lobes, left worse than right. (2) Septic shock: Code(s): A41.9 - Sepsis, unspecified organism; R65.21 - Severe sepsis with septic shock Status: Acute Assessment and Plan: Patient in shock likely related to cardiac arrest, infection -has been on intermittent Levophed will maintain mean arterial pressures > 65 mmHg - Pts's mother states that patient's SBP are in the 100s normally and she does feel light headed and blacks out when standing up quickly -elevated LFTs likely related to cardiac arrest, shock liver, due to hypotension -start midodrine (3) Pneumonia: Code(s): J18.9 - Pneumonia, unspecified organism Status: Acute Assessment and Plan: Aspiration pneumonia, treatment as above (4) Status epilepticus, generalized convulsive: Code(s): G40.901 - Epilepsy, unspecified, not intractable, with status epilepticus Status: Acute Assessment and Plan: Patient presented with status epilepticus, with seizure activity > 30 minutes. Patient had not been taking her seizure medications -currently on valproic acid 500 mg IV q.6 hours -Keppra 500 mg IV q.12 hours - appreciate neurology consult -no seizure since admission (5) Cardiac arrest: Code(s): I46.9 - Cardiac arrest, cause unspecified Status: Acute Assessment and Plan: Patient had a brief cardiac arrest which she received CPR, epinephrine x2 before obtaining ROSC. Likely PE arrest secondary to hypoxia due to status epilepticus/altered mental status -patient was following commands in the ER, was not a candidate for targeted temperature management -currently in sinus rhythm -Appreciate cardiology following the pt -12/12: echocardiogram ummary ? 1. Complete two-dimensional, color flow and Doppler transthoracic echocardiogram is performed. ? 2. Left ventricular chamber dimension is normal. ? 3. Left ventricular systolic function is normal, estimated at 55-60%. ? 4. There is no increased left ventricular wall thickness. ? 5. The left ventricular diastolic function is normal. ? 6. Dilated inferior vena cava with <50% collapse upon inspiration consistent with elevated right atrial pressure, 15 mmHg. ? 7. Recommend limited echo once the patient is extubated to re-evaluate her EF and her aortic valve as the image quality is suboptimal given off axis imaging since the patient is ventilated and supine. (6) Acute kidney injury: Code(s): N17.9 - Acute kidney failure, unspecified Status: Acute Assessment and Plan: Patient presented with acute kidney injury likely related to cardiac arrest, status epilepticus, hypovolemia, infection/sepsis -adequately fluid-resuscitated -currently on bicarb infusion -will give additional IV fluid bolus this morning -creatinine is improving, (1.80 on admission) -continue to monitor urine output, renal function electrolytes -lactic acid normalized (7) Rhabdomyolysis: Qualifiers: Rhabdomyolysis type: non-traumatic Qualified Code(s): M62.82 - Rhabdomyolysis Code(s): M62.82 - Rhabdomyolysis Status: Acute Assessment and Plan: Elevated CK levels likely related to tonic-clonic seizures and status epilepticus on admission -CK levels remain elevated, nephrology has been consulted -discussed with Nephrology, patient making adequate urine output, has received adequate IV fluids since admissions.
--- NOTE | 2022-12-14 09:23 | PM.PNCARD ---
Progress Note: A&P Assessment and Plan (1) Cardiac arrest: Code(s): I46.9 - Cardiac arrest, cause unspecified Status: Acute Assessment and Plan: Possible pEA arrest due to hypoxia from status epilepticus Echo shows a grossly normal ejection fraction but difficult study with off axis imaging. Will reorder limited echo for tomorrow. Wean pressors as able. (2) Status epilepticus, generalized convulsive: Code(s): G40.901 - Epilepsy, unspecified, not intractable, with status epilepticus Status: Acute Assessment and Plan: Neurology has been consulted. (3) Acute respiratory failure: Code(s): J96.00 - Acute respiratory failure, unspecified whether with hypoxia or hypercapnia Status: Acute Assessment and Plan: Extubated (4) Pneumonia: Code(s): J18.9 - Pneumonia, unspecified organism Status: Acute Assessment and Plan: Most likely from aspiration. Management as per ICU team. (5) Rhabdomyolysis: Qualifiers: Rhabdomyolysis type: non-traumatic Qualified Code(s): M62.82 - Rhabdomyolysis Code(s): M62.82 - Rhabdomyolysis Status: Acute Assessment and Plan: CK levels are rising. Fluid resuscitation as per ICU team. (6) Acute kidney injury: Code(s): N17.9 - Acute kidney failure, unspecified Status: Acute Assessment and Plan: Improving. Her potassium is low and already replaced Subjective Date/time seen: 12/14/22 09:23 Interval history: 22-year-old transgender female with a past medical history of borderline personality disorder, OCD, anxiety and panic disorder, as well as social pragmatic communication disorder and epilepsy who presented to the ER via EMS from boyfriend's house with status epilepticus with seizure lasting 30 minutes. Date of service 12/14/2022: Extubated. Complains of chest soreness. wants Lombardo out. No shortness of breath Review of Systems Constitutional: Constitutional: Denies lethargy Cardiovascular: Cardiovascular: Reports chest pain Respiratory: Respiratory: Denies dyspnea on exertion Gastrointestinal: Gastrointestinal: Denies abdominal pain Exam Const: General: no acute distress HENMT: Face/Nose/Sinus: Normal nares present Mouth: Yes moist mucous membranes Eyes: Sclera: sclerae normal Neck: Neck: supple Resp: Effort & Inspection: normal respiratory effort Cardio: Rate: regular rate Rhythm: regular rhythm Heart sounds: no murmurs GI: Inspection: non-distended GI Palp: Yes Soft to palpation Auscultation: normal bowel sounds Skin: General skin exam: normal color Neuro: Speech: normal speech Extrem: General: normal to inspection Psych: Mental Status: mental status grossly normal Objective Data Vital Signs Vital Signs: Vital Signs - 24 hr 12/13/22 09:50 12/13/22 09:45 12/13/22 10:47 Temperature Pulse Rate 104 H 97 Respiratory Rate 8 L 27 H Blood Pressure Pulse Oximetry 86 L Oxygen Delivery Oxygen Flow Rate Fraction of Inspired Oxygen 25 12/13/22 09:30 12/13/22 09:45 12/13/22 12:37 Temperature 38.5 C H Pulse Rate 103 H 112 H Respiratory Rate Blood Pressure 104/65 110/81 Pulse Oximetry Oxygen Delivery Oxygen Flow Rate Fraction of Inspired Oxygen 12/13/22 10:00 12/13/22 12:00 12/13/22 13:03 Temperature 37.7 C H 38.4 C H Pulse Rate 125 H 100 107 H Respiratory Rate 21 H 17 16 Blood Pressure 112/76 116/75 Pulse Oximetry 100 100 Oxygen Delivery Oxygen Flow Rate Fraction of Inspired Oxygen 12/13/22 09:49 12/13/22 09:50 12/13/22 10:00 Temperature Pulse Rate 101 H 123 H Respiratory Rate 10 L Blood Pressure Pulse Oximetry 87 L 100 Oxygen Delivery Mechanical Ventilation Oxygen Flow Rate Fraction of Inspired Oxygen 25 25 12/13/22 11:44 12/13/22 12:00 12/13/22 12:00 Temperature Pulse Rate 106 H Respiratory Rate 27 H Blood Pressure
[2022-12-14] MEDS: levETIRAcetam 500MG/NACL 100ML 500 MG/100 ML BAG 400 MG IVPB ×2 (09:27→21:44)
[2022-12-14] MEDS: KCL 40 MEQ/WATER 100 ML 100 ML 25 ML IVPB (09:27)
[2022-12-14] MEDS: busPIRone HCL 5 MG TABLET 15 MG FEED TUBE ×2 (09:29→16:31)
[2022-12-14] MEDS: MAGNESIUM SULF 2 GM/WATER 50ML 2 GM/50 ML BAG IVPB (09:29)
[2022-12-14] MEDS: PANTOPRAZOLE SODIUM IV 40 MG VIAL IV PUSH ×2 (09:30→21:32)
[2022-12-14] MEDS: NEOMYCIN/POLYMYXIN/BACITRACIN OINTMENT 15 GM TUBE 1 APPLIC TOPICAL (09:31)
[2022-12-14 10:06] LABS: Appearance Urine Clear (Clear); Bilirubin Urine Negative (Negative); Blood Urine 2+ (Negative); Color Urine Yellow (Yellow); Glucose Urine UA Negative (Negative); Ketones Urine Negative (Negative); Leukocyte Esterase Ur Negative LEU/UL (NEGATIVE); Nitrate Urine Negative (Negative); Protein Urine 2+ mg/dL (Negative); Urobilinogen Urine 0.2 mg/dL (<2.0)
--- NOTE | 2022-12-14 10:07 | PM.CNNEP ---
Assessment and Plan Assessment and plan (1) Rhabdomyolysis: Qualifiers: Rhabdomyolysis type: non-traumatic Qualified Code(s): M62.82 - Rhabdomyolysis Code(s): M62.82 - Rhabdomyolysis Status: Acute Assessment and Plan: Yee has rhabdomyolysis. Most likely this is from the seizures and possibly from hypoxia from the cardiac arrest. It does not seem like she has and the underlying cause for chronic rhabdomyolysis such as dermatomyositis or polymyositis. We do not have any old records however documenting any CK lab values. The CK is very high. It is above 16,000 and so just from this value we do not know whether it is getting better or worse. Certainly in the 1st 3 days it was worsening but yesterday and today the values were both above 16,000. However the liver enzyme may be a reasonable surrogate for the rhabdo because ALT and AST both come from muscle as well as liver. The elevation of the ALT and AST could be from the liver as well, but since the numbers are dropped I would think that this would speak against a continued rapid rise of the CK. she does continue to have relatively low blood pressure and so is on pressors still. She is going to start midodrine to see if we can start weaning the pressures. Will check a cortisol level. TSH is okay. She is making a lot of urine. Her intake/ output are basically equal. Her sodium level is at the lower end of normal ( 138, and normal is 137-145 ) which makes DI less likely. Notably she is on lithium but only takes it as needed. It is unclear how often she really takes this. She does drink a lot of water but most this time this is a habit rather than a necessity.Since electrolytes are okay we are keeping up with the urine output I think we can just follow thing along and as we wean the fluid if the sodium level starts to rise we can do more studies. in the meantime, will continue IV fluids to help flush the CPK out. The urine pH is 6 and ideally should be around 7 to help with the rhabdomyolysis. Will restart bicarb drip. (2) Cardiac arrest: Code(s): I46.9 - Cardiac arrest, cause unspecified Status: Acute Assessment and Plan: cardiology is on the case. Possibly related to the seizure (3) Seizure: Code(s): R56.9 - Unspecified convulsions Status: Acute Assessment and Plan: this is a long-term problem . (4) Acute kidney injury: Code(s): N17.9 - Acute kidney failure, unspecified Status: Acute Assessment and Plan: Creatinine was elevated when she was admitted but is close to normal now. Since she is still on pressors there may be some improvement to go once she is off the pressors. (5) Acute lactic acidosis: Code(s): E87.21 - Acute metabolic acidosis Status: Acute Assessment and Plan: This is resolved History of Present Illness Reason for Consult Consult date: 12/14/22 Chief Complaint Chief complaint: Seizure, Cardiac Arrest History of Present Illness Narrative: Yee is a very pleasant 22-year-old transgender female with borderline personality disorder obsessive-compulsive disorder, anxiety and panic disorder, social pragmatic communication disorder,and, epilepsy, with a long-term history of tonic clonic seizures for about the last 10 years. She has been having seizures once a week for short duration because of variable compliance with medications. She was staying with her boyfriend for about 3 days and developed a seizure which lasted a 1/2hour. There was question of a cardiorespiratory arrest so was given CPR and 911 was called. She received supportive care and was taken to the ER. She has been given several rounds of cardiac medications including IV fluids. She was intubated. She was admitted to the ICU. The patient was quite acidotic and so was put on a bicarb drip. She was hypotensive and so was given pressors. Over the course of the next 3 days the
[2022-12-14 10:12] LABS: Bacteria Urine None Seen /hpf; RBC Urine 0-2 /hpf (0-2); Squamous Epithelial Cell Urine Few /hpf (Few); WBC Urine 0-5 /hpf (0-3)
[2022-12-14 10:20] LABS: Add Urine Microscopic? YES
[2022-12-14] MEDS: MIDODRINE HCL 10 MG TABLET PO ×3 (10:47→16:31)
[2022-12-14] MEDS: SODIUM BICARBONATE 8.4% 150 MEQ in WATER, STERILE FOR INJECTION 950 ML 100 MEQ IV CONT ×2 (11:46→22:11)
[2022-12-14] MEDS: MINERAL OIL/WHITE PETROLATUM OINTMENT 1 APPLIC EACH EYE (21:52)
[2022-12-15] VITALS (17 sets, daily range): BP systolic 91–101; BP diastolic 44–64; PULSE 53–76; RESP 13–23; TEMP 36.4–37.1; O2SAT 96–100
--- NOTE | 2022-12-15 | ECHOL_ITS ---
Patient Info Name: Yee Clemons Age: 22 years : 2000 Gender: Female Ht: 69 in Wt: 135 lbs BSA: 1.72 m2 HR: 62 bpm BP: 91 / 50 mmHg Heart Rhythm: Sinus Rhythm Technical Quality: Fair Exam Date: 12/15/2022 11:45 AM Exam Location: [facility] Pulmonary Exam Room: [facility] Patient Status: Inpatient Admit Date: 12/12/2022 Staff Ordering Physician: Clayton Vu MD Tier In: Nessa Santana RDCS Attending Provider: Mckenzie Medellin DO Referring Physician: Mirella SORIANO; Exam Type: CA echo limited Study Info Indications - RE EVALUATE LV FXN AND AORTIC VALVE S/P ARREST Limited two-dimensional transthoracic echocardiogram is performed. Summary 1. Normal left ventricular size thickness and systolic function. 2. Normal right ventricular size and contractility. 3. Normal appearing cardiac valves. 4. Doppler information not performed in this limited echocardiogram. Left Ventricle Left ventricular chamber dimension is normal. Left ventricular systolic function is normal, estimated at 65-70%. Right Ventricle Right ventricular chamber dimension is normal. Left Atria Left atrial chamber dimension is normal. Right Atria Right atrial chamber dimension is normal. Aortic Valve The aortic valve is normal. Pulmonic Valve The pulmonic valve is normal. Mitral Valve The mitral valve has normal leaflets. Pericardium/Pleural The pericardium appears normal. Aorta The aortic root size at the sinus of Valsalva is normal. Ventricles Name Value Normal LV Dimensions 2D/MM IVS Diastolic Thickness (2D) 0.6 cm 0.6-1.0 LVID Diastole (2D) 4.8 cm 3.8-5.2 LVIW Diastolic Thickness (2D) 0.9 cm 0.6-0.9 LVID Systole (2D) 2.9 cm 2.2-3.5 LV Mass (2D Cubed) 116.05 g 67.00-162.00 LV Mass Index (2D Cubed) 67 g/m2 43-95 Relative Wall Thickness (2D) 0.37 LV Fractional Shortening/Ejection Fraction 2D/MM LV Fractional Shortening (2D) 40 % 27-45 LV EF (2D Teicholz) 70 % 54-74 LV Diastolic Volume (4C MOD) 62 ml LV EF (4C MOD) 78 % LV Diastolic Volume (2C MOD) 78 ml LV EF (2C MOD) 72 % LV Diastolic Volume (BP MOD) 70 ml 46-106 LV Diastolic Volume Index (BP MOD) 41 ml/m2 29-61 LV Systolic Volume (BP MOD) 17 ml 14-42 LV Systolic Volume Index (BP MOD) 10 ml/m2 8-24 LV EF (BP MOD) 76 % 54-74 LV Diastolic Length (4C) 7.1 cm LV Systolic Length (4C) 5.5 cm LV Stroke Volume (4C MOD) 49 ml Report Signatures
[2022-12-15] MEDS: metroNIDAZOLE 500 MG/ISO 100ML 500 MG/100 ML BAG 100 MG IVPB ×4 (03:13→21:01)
[2022-12-15] MEDS: VALPROIC ACID INJ 500 MG in DEXTROSE 5% 100 ML 100 MG IVPB ×4 (03:19→21:04)
[2022-12-15] MEDS: CEFEPIME 2 GM/NS 50 ML 2 GM/50 ML BAG IVPB ×2 (03:26→14:30)
[2022-12-15 06:13] LABS: Basophils Percent Auto 0.3 % (0.2-1.2); Eosinophils Absolute Auto 0.1 K/mm3 (0-0.3); Eosinophils Percent Auto 1.3 % (0-4.4); Hematocrit 26.8 % (37.0-47.0); Hemoglobin 8.8 g/dL (12.0-15.0); Immature Granulocyte Absolute 0.05 K/mm3 (0.00-0.031); Immature Granulocyte Percent A 0.6 % (0-0.5); Immature Platelet Fraction Pct 6.6 % (0.9-11.2); Lymphocytes Absolute Auto 1.82 K/mm3 (0.9-3.2); Lymphocytes Percent Auto 20.4 % (18.3-44.2); Mean Corpuscular HGB Conc 32.8 g/dl (32-36); Mean Corpuscular Hemoglobin 31.9 pg (26-34); Mean Corpuscular Volume 97.1 fl (80-100); Mean Platelet Volume 11.8 fl (7.4-10.4); Monocytes Absolute Auto 0.5 K/mm3 (0.1-0.6); Monocytes Percent Auto 5.6 % (2.6-8.5); Neutrophils Absolute Auto 6.4 K/mm3 (1.3-6.7); Neutrophils Percent Auto 71.8 % (45.5-73.1); Platelet Count Result 72 k/mm3 (150-375); Red Blood Count 2.76 M/mm3 (4.2-5.4); Red Cell Distribution Width 12.1 % (11.5-14.5); White Blood Count 8.9 K/mm3 (4.5-10.0)
[2022-12-15 06:24] LABS: Alanine Aminotransferase 269 U/L (6-35); Albumin Level 2.2 g/dL (3.5-5.1); Alkaline Phosphatase 70 U/L (38-126); Anion Gap -1 mmol/L (8-16); Aspartate Amino Transferase 612 U/L (14-36); Bilirubin,Total 0.4 mg/dL (0.2-1.3); Blood Urea Nitrogen 10 mg/dL (7-17); CRP 5.4 mg/dL (<1.0); Calcium 7.3 mg/dL (8.4-10.2); Carbon Dioxide 36 mmol/L (22-30); Chloride 99 mmol/L (98-107); Estimated CRCL calculation 90 ml/min; Estimated Glomerular Filt Rate > 60; Glucose 94 mg/dL (65-110); Magnesium 1.9 mg/dL (1.6-2.3); Phosphorus 2.4 mg/dL (2.5-4.5); Sodium 134 mmol/L (137-145)
[2022-12-15 06:25] LABS: Vancomycin Trough 13.3 ug/mL (10.0-20.0)
[2022-12-15 06:40] LABS: Creatine Kinase 5885 U/L (30-135)
[2022-12-15] MEDS: CENTRAL LINE FLUSH 10 ML IV PUSH ×4 (08:00→21:05)
[2022-12-15 08:01] LABS: IFOB Positive Control Positive; Immunochemical Fecal Occult Bl Negative (N)
--- NOTE | 2022-12-15 08:10 | P.PNIM_ITS ---
Progress Note: A&P Assessment and Plan (1) Acute respiratory failure: Code(s): J96.00 - Acute respiratory failure, unspecified whether with hypoxia or hypercapnia Status: Acute Assessment and Plan: Acute respiratory failure likely related to status epilepticus, cardiac arrest -initial ABG showed a pH of 6.7 -ABGs this morning much improved with pH of 7.34, pCO2 of 29, PO2 of 107, HC03 16.1, O2 sats 97.8%. -chest x-ray this morning shows hazy left infrahilar airspace disease findings are consistent with pneumonia, either lingula or left lower lobe. -patient received Unasyn in the ER x1 dose -continue cefepime, vancomycin and Flagyl (12/12) -12/12/2022: CT scan of the abdomen and pelvis showed pneumonia involving the upper lobes and lower lobes, left worse than right. -chest x-ray this morning: ?Improvement of left lower lung infiltrate since 12/12/2022? -Sedated with fentanyl and propofol -patient was placed on SBT, started on Precedex infusion, fentanyl and propofol discontinue -12/13: patient was successfully extubated resolved (2) Pneumonia: Code(s): J18.9 - Pneumonia, unspecified organism Status: Acute Assessment and Plan: Aspiration pneumonia, abx as above de-escalated to cefepime + flagyl, d/c vanc 12/15 (3) Status epilepticus, generalized convulsive: Code(s): G40.901 - Epilepsy, unspecified, not intractable, with status epilepticus Status: Acute Assessment and Plan: Patient presented with status epilepticus, with seizure activity > 30 minutes. Patient had not been taking her seizure medications -currently on valproic acid 500 mg IV q.6 hours -Keppra 500 mg IV q.12 hours - appreciate neurology consult -no seizure since admission (4) Cardiac arrest: Code(s): I46.9 - Cardiac arrest, cause unspecified Status: Acute Assessment and Plan: Patient had a brief cardiac arrest which she received CPR, epinephrine x2 before obtaining ROSC. Likely PE arrest secondary to hypoxia due to status epilepticus/altered mental status Patient was following commands in the ER, was not a candidate for targeted temperature management Currently in sinus rhythm Appreciate cardiology following the pt 12/12: echocardiogram Summary ? 1. Complete two-dimensional, color flow and Doppler transthoracic echocardiogram is performed. ? 2. Left ventricular chamber dimension is normal. ? 3. Left ventricular systolic function is normal, estimated at 55-60%. ? 4. There is no increased left ventricular wall thickness. ? 5. The left ventricular diastolic function is normal. ? 6. Dilated inferior vena cava with <50% collapse upon inspiration consistent with elevated right atrial pressure, 15 mmHg. ? 7. Recommend limited echo once the patient is extubated to re-evaluate her EF and her aortic valve as the image quality is suboptimal given off axis imaging since the patient is ventilated and supine. Repeat echo 12/16 (5) Acute kidney injury: Code(s): N17.9 - Acute kidney failure, unspecified Status: Acute Assessment and Plan: Patient presented with acute kidney injury likely related to cardiac arrest, status epilepticus, hypovolemia, infection/sepsis Resolved, monitor (6) Rhabdomyolysis: Qualifiers: Rhabdomyolysis type: non-traumatic Qualified Code(s): M62.82 - Rhabdomyolysis Code(s): M62.82 - Rhabdomyolysis Status: Acute Assessment and Plan: Elevated CK levels likely related to tonic-clonic seizures and status epilepticus on ad
[2022-12-15] MEDS: levETIRAcetam 500MG/NACL 100ML 500 MG/100 ML BAG 400 MG IVPB ×2 (08:46→20:56)
[2022-12-15] MEDS: KCL 40 MEQ/WATER 100 ML 100 ML 25 ML IVPB (08:46)
[2022-12-15] MEDS: busPIRone HCL 5 MG TABLET 15 MG FEED TUBE ×2 (08:47→17:04)
[2022-12-15] MEDS: PANTOPRAZOLE SODIUM IV 40 MG VIAL IV PUSH ×2 (08:47→21:04)
[2022-12-15] MEDS: MIDODRINE HCL 10 MG TABLET PO ×3 (08:49→17:04)
[2022-12-15] MEDS: NEOMYCIN/POLYMYXIN/BACITRACIN OINTMENT 15 GM TUBE 1 APPLIC TOPICAL (08:50)
--- NOTE | 2022-12-15 09:12 | P.PNNP_ITS ---
Progress Note: A&P Assessment and Plan (1) Rhabdomyolysis: Qualifiers: Rhabdomyolysis type: non-traumatic Qualified Code(s): M62.82 - Rh abdomyolysis Code(s): M62.82 - Rhabdomyolysis Status: Acute Assessment and Plan: * presumably secondary from seizure activity +/- hypoxia from cardiac arrest * coming down with current therapy/treatment * good urine output noted * ok to d/c bicarb fluids * however, depending on po intake, make need some maintenance IVFs * follow trend of CPK (2) Acute kidney injury: Code(s): N17.9 - Acute kidney failure, unspecified Status: Acute Assessment and Plan: * resolved (3) Cardiac arrest: Code(s): I46.9 - Cardiac arrest, cause unspecified Status: Acute Assessment and Plan: * s/p ACLS protocol with ROSC quickly * thought to be secondary PEA arrest from hypoxia and seizure d/o * Cardiology following (4) Seizure: Code(s): R56.9 - Unspecified convulsions Status: Chronic Assessment and Plan: * longstanding issue * presented with status epilepticus * with seizure activity > 30 minutes * patient had not been taking her seizure medications * on anti-seizure medications * Neurology recommendations noted * no seizure since admission (5) Septic shock: Code(s): A41.9 - Sepsis, unspecified organism; R65.21 - Severe sepsis with septic shock Status: Acute Assessment and Plan: * presumably due to cardiac arrest and infection * apparently, systolic BP normally runs on 100s * started on midodrine -- weaned off levophed (6) Pneumonia: Code(s): J18.9 - Pneumonia, unspecified organism Status: Acute Assessment and Plan: * as noted by imaging studies to date * follow culture data * on antibiotics Discussed case with Dr. Chan Will continue to follow. Subjective Date/time seen: 12/15/22 09:12 Interval history: Follow-up for acute rhabdomyolysis. Chart reviewed -- assuming care from Dr. Gonzales; weaned off levophed gtt and started on midodrine with relatively stable hemodynamics; renal function has normalized and continues to have excellent urine output; appetite still poor; CPK levels are downtrending as her LFTs. Exam Narrative: General: thin WD/WN transgender female in NAD Heart: normal S1 and S2; no rub Lungs: clear to auscultation Abdomen: soft, nontender, nondistended, positive bowel sounds Extremities: no cyanosis or clubbing; no edema Skin: warm and dry Objective Data Vital Signs Vital Signs: Vital Signs Temp Pulse Resp BP Pulse Ox O2 Del Method 12/15/22 09:03 98.6 F 65 20 96/59 L 98 12/15/22 07:51 98.8 F 70 14 98/61 L 98 12/15/22 04:00 Room Air 12/15/22 06:00 98.8 F 76 15 95/57 L 12/15/22 04:00 98.5 F 65 16 99/64 L 100 12/15/22 02:00 97.8 F 53 L 18 94/61 L 100 12/15/22 06:00 76 12/15/22 04:00 65 12/15/22 02:00 53 L 12/15/22 00:00 Room Air 12/15/22 00:00 98.4 F 57 L 23 H 91/50 L 96 12/14/22 22:00 99.2 F 55 L 15 95/63 L 100 12/14/22 20:00 98.9 F 62 14 107/73 100 12/14/22 20:00 Room Air 12/15/22 00:00 58 L 12/14/22 22:00 55 L 12/14/22 20:00 57 L 1
--- NOTE | 2022-12-15 09:12 | PM.PNNEP ---
Progress Note: A&P Assessment and Plan (1) Rhabdomyolysis: Qualifiers: Rhabdomyolysis type: non-traumatic Qualified Code(s): M62.82 - Rhabdomyolysis Code(s): M62.82 - Rhabdomyolysis Status: Acute Assessment and Plan: presumably secondary from seizure activity +/- hypoxia from cardiac arrest coming down with current therapy/treatment good urine output noted ok to d/c bicarb fluids however, depending on po intake, make need some maintenance IVFs follow trend of CPK (2) Acute kidney injury: Code(s): N17.9 - Acute kidney failure, unspecified Status: Acute Assessment and Plan: resolved (3) Cardiac arrest: Code(s): I46.9 - Cardiac arrest, cause unspecified Status: Acute Assessment and Plan: s/p ACLS protocol with ROSC quickly thought to be secondary PEA arrest from hypoxia and seizure d/o Cardiology following (4) Seizure: Code(s): R56.9 - Unspecified convulsions Status: Chronic Assessment and Plan: longstanding issue presented with status epilepticus with seizure activity > 30 minutes patient had not been taking her seizure medications on anti-seizure medications Neurology recommendations noted no seizure since admission (5) Septic shock: Code(s): A41.9 - Sepsis, unspecified organism; R65.21 - Severe sepsis with septic shock Status: Acute Assessment and Plan: presumably due to cardiac arrest and infection apparently, systolic BP normally runs on 100s started on midodrine -- weaned off levophed (6) Pneumonia: Code(s): J18.9 - Pneumonia, unspecified organism Status: Acute Assessment and Plan: as noted by imaging studies to date follow culture data on antibiotics Discussed case with Dr. Chan Will continue to follow. Subjective Date/time seen: 12/15/22 09:12 Interval history: Follow-up for acute rhabdomyolysis. Chart reviewed -- assuming care from Dr. Gonzales; weaned off levophed gtt and started on midodrine with relatively stable hemodynamics; renal function has normalized and continues to have excellent urine output; appetite still poor; CPK levels are downtrending as her LFTs. Exam Narrative: General: thin WD/WN transgender female in NAD Heart: normal S1 and S2; no rub Lungs: clear to auscultation Abdomen: soft, nontender, nondistended, positive bowel sounds Extremities: no cyanosis or clubbing; no edema Skin: warm and dry Objective Data Vital Signs Vital Signs: Vital Signs Temp Pulse Resp BP Pulse Ox O2 Del Method 12/15/22 09:03 98.6 F 65 20 96/59 L 98 12/15/22 07:51 98.8 F 70 14 98/61 L 98 12/15/22 04:00 Room Air 12/15/22 06:00 98.8 F 76 15 95/57 L 12/15/22 04:00 98.5 F 65 16 99/64 L 100 12/15/22 02:00 97.8 F 53 L 18 94/61 L 100 12/15/22 06:00 76 12/15/22 04:00 65 12/15/22 02:00 53 L 12/15/22 00:00 Room Air 12/15/22 00:00 98.4 F 57 L 23 H 91/50 L 96 12/14/22 22:00 99.2 F 55 L 15 95/63 L 100 12/14/22 20:00 98.9 F 62 14 107/73 100 12/14/22 20:00 Room Air 12/15/22 00:00 58 L 12/14/22 22:00 55 L 12/14/22 20:00 57 L 12/14/22 17:58 98.8 F 65 12 97/68 L 94 12/14/22 18:00 64 12/14/22 16:00 64 12/14/22 16:00 98.8 F 69 18 89/57 L 99 12/14/22 14:00 75 12/14/22 13:47 98.9 F 57 L 20 100/60 99 12/14/22 12:00 98.5 F 72 20 93/62 L 99 12/14/22 12:00 66 Intake/Output Intake/Output: Intake & Output 12/12/22 12/13/22 12/14/22 12/15/22 23:59 23:59 23:59 23:59 Intake Total 6287.5 5734 5164 1455 Output Total 0389 6720 5742 1800 Balance -112.5 -991 -586 -345 Meds/Results Medications: Active Medications Generic Name Dose Route Start Last Admin Trade Name Freq PRN Reason Stop Dose Admin Acetaminophen 650 mg 12/13/22 12:20 12/14/22 01:11 Acet
[2022-12-15] MEDS: SODIUM BICARBONATE 8.4% 150 MEQ in WATER, STERILE FOR INJECTION 950 ML 100 MEQ IV CONT (09:22)
--- NOTE | 2022-12-15 11:22 | PCFNICU ---
ICU Rounding Note: Pt current nutrition is Regular. Last recorded weight is 60.1 kg, up from 58.8 kg on admit. Bowel Motility:+BM reported 12/15 Labs Reviewed:K 3.0,Na 134, Hct 26.8,Hgb 8.8,Alb 2.2 Meds Noted:Flagyl, Keppra, Protonix Skin:WNL Additional Notes: Patient extubated 12/13. Diet order has advanced to a regular diet. Oral Intake poor. Nausea/vomiting reported. Agree with diet orders at this time. Following daily in ICU rounds.
[2022-12-15] MEDS: DEXTROSE 5%/0.9% SOD CHL 1,000 ML 100 ML IV CONT ×2 (11:24→20:56)
--- NOTE | 2022-12-15 12:14 | WPDINTPN ---
Progress Note: A&P Assessment and Plan (1) Acute respiratory failure: Code(s): J96.00 - Acute respiratory failure, unspecified whether with hypoxia or hypercapnia Status: Acute Assessment and Plan: Acute respiratory failure likely related to status epilepticus, cardiac arrest -12/13: patient successfully extubated -patient received Unasyn in the ER x1 dose -leukocytosis has resolved, will continue cefepime, vancomycin and Flagyl (12/12) -12/12/2022: CT scan of the chest, abdomen and pelvis showed pneumonia involving the upper lobes and lower lobes, left worse than right. (2) Septic shock: Code(s): A41.9 - Sepsis, unspecified organism; R65.21 - Severe sepsis with septic shock Status: Acute Assessment and Plan: Patient in shock likely related to cardiac arrest, infection -off Levophed, continue dale maintain mean arterial pressures > 65 mmHg - Pts's mother states that patient's SBP are in the 100s normally and she does feel light headed and blacks out when standing up quickly -elevated LFTs likely related to cardiac arrest, shock liver, due to hypotension, LFTs trending down, continue to monitor -continue midodrine, patient is off Levophed (3) Pneumonia: Code(s): J18.9 - Pneumonia, unspecified organism Status: Acute Assessment and Plan: Aspiration pneumonia, treatment as above (4) Status epilepticus, generalized convulsive: Code(s): G40.901 - Epilepsy, unspecified, not intractable, with status epilepticus Status: Acute Assessment and Plan: Patient presented with status epilepticus, with seizure activity > 30 minutes. Patient had not been taking her seizure medications -currently on valproic acid 500 mg IV q.6 hours -Keppra 500 mg IV q.12 hours - appreciate neurology consult -no seizure since admission (5) Cardiac arrest: Code(s): I46.9 - Cardiac arrest, cause unspecified Status: Acute Assessment and Plan: Patient had a brief cardiac arrest which she received CPR, epinephrine x2 before obtaining ROSC. Likely PE arrest secondary to hypoxia due to status epilepticus/altered mental status -patient was following commands in the ER, was not a candidate for targeted temperature management -currently in sinus rhythm -Appreciate cardiology following the pt -limited echo has been ordered for today (12/15) -12/12: echocardiogram ummary ? 1. Complete two-dimensional, color flow and Doppler transthoracic echocardiogram is performed. ? 2. Left ventricular chamber dimension is normal. ? 3. Left ventricular systolic function is normal, estimated at 55-60%. ? 4. There is no increased left ventricular wall thickness. ? 5. The left ventricular diastolic function is normal. ? 6. Dilated inferior vena cava with <50% collapse upon inspiration consistent with elevated right atrial pressure, 15 mmHg. ? 7. Recommend limited echo once the patient is extubated to re-evaluate her EF and her aortic valve as the image quality is suboptimal given off axis imaging since the patient is ventilated and supine. (6) Acute kidney injury: Code(s): N17.9 - Acute kidney failure, unspecified Status: Acute Assessment and Plan: Patient presented with acute kidney injury likely related to cardiac arrest, status epilepticus, hypovolemia, infection/sepsis -adequately fluid-resuscitated -currently on bicarb infusion -will give additional IV fluid bolus this morning -creatinine has normalized, (1.80 on admission) -continue to monitor urine output, renal function electrolytes -lactic acid normalized (7) Rhabdomyolysis: Qualifiers: Rhabdomyolysis type: non-traumatic Qualified Code(s): M62.82 - Rhabdomyolysis Code(s): M62.82 - Rhabdomyolysis Status: Acute Assessment and Plan: Elevated CK levels likely related to tonic-clonic seizures and status epilepticus on admission -CK levels remain elevated, nephrology has been consulted -discu
[2022-12-15] MEDS: POTASSIUM PHOS,M-BASIC-D-BASIC 20 MMOL in SODIUM CHLORIDE 0.9% IV 250 ML 64.17 MMOL IVPB (12:19)
[2022-12-15] MEDS: SODIUM CHLORIDE 0.9% IV 250 ML ×2 (21:00→21:04)
[2022-12-16] VITALS (15 sets, daily range): BP systolic 90–99; BP diastolic 41–58; PULSE 55–70; RESP 14–24; TEMP 36.2–36.8; O2SAT 94–98
[2022-12-16] MEDS: CEFEPIME 2 GM/NS 50 ML 2 GM/50 ML BAG IVPB ×2 (03:58→15:26)
[2022-12-16] MEDS: metroNIDAZOLE 500 MG/ISO 100ML 500 MG/100 ML BAG 100 MG IVPB ×4 (04:01→20:36)
[2022-12-16] MEDS: VALPROIC ACID INJ 500 MG in DEXTROSE 5% 100 ML 100 MG IVPB ×4 (04:01→20:31)
[2022-12-16] MEDS: CENTRAL LINE FLUSH 10 ML IV PUSH ×4 (05:18→20:38)
[2022-12-16 05:33] LABS: Basophils Percent Auto 0.3 % (0.2-1.2); Eosinophils Absolute Auto 0.2 K/mm3 (0-0.3); Eosinophils Percent Auto 2.3 % (0-4.4); Hematocrit 28.6 % (37.0-47.0); Hemoglobin 9.3 g/dL (12.0-15.0); Immature Granulocyte Absolute 0.03 K/mm3 (0.00-0.031); Immature Granulocyte Percent A 0.4 % (0-0.5); Immature Platelet Fraction Pct 6.9 % (0.9-11.2); Lymphocytes Absolute Auto 1.74 K/mm3 (0.9-3.2); Lymphocytes Percent Auto 25.3 % (18.3-44.2); Mean Corpuscular HGB Conc 32.5 g/dl (32-36); Mean Corpuscular Hemoglobin 32.4 pg (26-34); Mean Corpuscular Volume 99.7 fl (80-100); Mean Platelet Volume 11.7 fl (7.4-10.4); Monocytes Absolute Auto 0.5 K/mm3 (0.1-0.6); Monocytes Percent Auto 7.6 % (2.6-8.5); Neutrophils Absolute Auto 4.4 K/mm3 (1.3-6.7); Neutrophils Percent Auto 64.1 % (45.5-73.1); Platelet Count Result 88 k/mm3 (150-375); Red Blood Count 2.87 M/mm3 (4.2-5.4); Red Cell Distribution Width 11.9 % (11.5-14.5); White Blood Count 6.9 K/mm3 (4.5-10.0)
[2022-12-16 05:42] LABS: Alanine Aminotransferase 174 U/L (6-35); Alkaline Phosphatase 59 U/L (38-126); Anion Gap -1 mmol/L (8-16); Aspartate Amino Transferase 272 U/L (14-36); Bilirubin,Total 0.3 mg/dL (0.2-1.3); Blood Urea Nitrogen 7 mg/dL (7-17); Calcium 7.5 mg/dL (8.4-10.2); Carbon Dioxide 29 mmol/L (22-30); Chloride 107 mmol/L (98-107); Estimated CRCL calculation 90 ml/min; Estimated Glomerular Filt Rate > 60; Glucose 99 mg/dL (65-110); Magnesium 1.8 mg/dL (1.6-2.3); Phosphorus 2.7 mg/dL (2.5-4.5); Potassium 3.1 mmol/L (3.4-5.0); Sodium 135 mmol/L (137-145)
[2022-12-16 06:15] LABS: Creatine Kinase 2963 U/L (30-135)
[2022-12-16] MEDS: busPIRone HCL 5 MG TABLET 15 MG FEED TUBE ×2 (09:08→17:24)
[2022-12-16] MEDS: DEXTROSE 5%/0.9% SOD CHL 1,000 ML 100 ML IV CONT ×2 (09:08→20:30)
[2022-12-16] MEDS: PANTOPRAZOLE SODIUM IV 40 MG VIAL IV PUSH ×2 (09:09→20:38)
[2022-12-16] MEDS: MIDODRINE HCL 10 MG TABLET PO ×3 (09:09→17:24)
[2022-12-16] MEDS: levETIRAcetam 500MG/NACL 100ML 500 MG/100 ML BAG 400 MG IVPB ×2 (09:10→20:31)
[2022-12-16] MEDS: NEOMYCIN/POLYMYXIN/BACITRACIN OINTMENT 15 GM TUBE 1 APPLIC TOPICAL (09:11)
--- NOTE | 2022-12-16 09:37 | PM.PNNEP ---
Progress Note: A&P Assessment and Plan (1) Rhabdomyolysis: Qualifiers: Rhabdomyolysis type: non-traumatic Qualified Code(s): M62.82 - Rhabdomyolysis Code(s): M62.82 - Rhabdomyolysis Status: Acute Assessment and Plan: presumably secondary from seizure activity +/- hypoxia from cardiac arrest coming down with current therapy/treatment good urine output noted off bicarb fluids follow trend of CPK (2) Acute kidney injury: Code(s): N17.9 - Acute kidney failure, unspecified Status: Acute Assessment and Plan: resolved (3) Cardiac arrest: Code(s): I46.9 - Cardiac arrest, cause unspecified Status: Acute Assessment and Plan: s/p ACLS protocol with ROSC quickly thought to be secondary PEA arrest from hypoxia and seizure d/o Cardiology following (4) Seizure: Code(s): R56.9 - Unspecified convulsions Status: Chronic Assessment and Plan: longstanding issue presented with status epilepticus with seizure activity > 30 minutes patient had not been taking her seizure medications on anti-seizure medications Neurology recommendations noted no seizure since admission (5) Septic shock: Code(s): A41.9 - Sepsis, unspecified organism; R65.21 - Severe sepsis with septic shock Status: Acute Assessment and Plan: resolved presumably due to cardiac arrest and infection culture data noted on antibiotics apparently, systolic BP normally runs on 100s started on midodrine (6) Pneumonia: Code(s): J18.9 - Pneumonia, unspecified organism Status: Acute Assessment and Plan: as noted by imaging studies to date follow cultures on antibiotics Not much else to add -- will continue to follow from a distance. Subjective Date/time seen: 12/16/22 09:37 Interval history: Follow-up for acute rhabdomyolysis. CPK levels continue to down trend with current therapy/interventions; moved out ICU yesterday; renal function stable with excellent urine output noted; no apparent distress noted at this time. Exam Narrative: General: thin WD/WN transgender female in NAD Heart: normal S1 and S2; no rub Lungs: clear to auscultation Abdomen: soft, nontender, nondistended, positive bowel sounds Extremities: no cyanosis or clubbing; no edema Skin: warm and intact Objective Data Vital Signs Vital Signs: Vital Signs Temp Pulse Resp BP Pulse Ox O2 Del Method FiO2 12/16/22 08:00 97.6 F 62 24 H 94/50 L 97 12/16/22 06:00 66 12/16/22 04:00 59 L 12/16/22 02:00 61 12/16/22 04:00 98.3 F 70 16 91/41 L 98 12/16/22 00:00 98.3 F 65 16 96/54 L 98 12/16/22 00:00 57 L 12/15/22 22:00 71 12/15/22 20:00 63 12/15/22 20:00 97.8 F 63 16 101/51 L 100 12/15/22 18:47 97.6 F 57 L 19 93/49 L 100 12/15/22 18:00 57 L 12/15/22 16:00 Room Air 12/15/22 12:00 Room Air 12/15/22 16:00 58 L 12/15/22 14:00 56 L 12/15/22 12:00 59 L 12/15/22 16:00 98.6 F 59 L 21 H 95/58 L 97 12/15/22 13:40 63 18 94/44 L 98 12/15/22 12:00 98.5 F 63 13 97/62 L 99 12/15/22 10:56 99 Room Air 21 Intake/Output Intake/Output: Intake & Output 12/13/22 12/14/22 12/15/22 12/16/22 23:59 23:59 23:59 23:59 Intake Total 5734 5314 4939.7 1325 Output Total 6725 5750 3750 950 Balance -991 436 1189.7 375 Meds/Results Medications: Active Medications Generic Name Dose Route Start Last Admin Trade Name Freq PRN Reason Stop Dose Admin Acetaminophen 650 mg 12/13/22 12:20 12/14/22 01:11 Acetaminophen Elixir 325 Mg/10.15 Ml Udc PO 650 mg Q6H PRN Administration Mild Pain (1-3) or Fever Alteplase, Recombinant 2 mg 12/16/22 05:15 Alteplase 2 Mg Vial (Cathflo) IV PUSH ONCE PRN Line Occlusion Buspirone HCl 15 mg 12/12/22 09:00 12/16/22
--- NOTE | 2022-12-16 09:37 | P.PNNP_ITS ---
Progress Note: A&P Assessment and Plan (1) Rhabdomyolysis: Qualifiers: Rhabdomyolysis type: non-traumatic Qualified Code(s): M62.82 - Rh abdomyolysis Code(s): M62.82 - Rhabdomyolysis Status: Acute Assessment and Plan: * presumably secondary from seizure activity +/- hypoxia from cardiac arrest * coming down with current therapy/treatment * good urine output noted * off bicarb fluids * follow trend of CPK (2) Acute kidney injury: Code(s): N17.9 - Acute kidney failure, unspecified Status: Acute Assessment and Plan: * resolved (3) Cardiac arrest: Code(s): I46.9 - Cardiac arrest, cause unspecified Status: Acute Assessment and Plan: * s/p ACLS protocol with ROSC quickly * thought to be secondary PEA arrest from hypoxia and seizure d/o * Cardiology following (4) Seizure: Code(s): R56.9 - Unspecified convulsions Status: Chronic Assessment and Plan: * longstanding issue * presented with status epilepticus * with seizure activity > 30 minutes * patient had not been taking her seizure medications * on anti-seizure medications * Neurology recommendations noted * no seizure since admission (5) Septic shock: Code(s): A41.9 - Sepsis, unspecified organism; R65.21 - Severe sepsis with septic shock Status: Acute Assessment and Plan: * resolved * presumably due to cardiac arrest and infection * culture data noted * on antibiotics * apparently, systolic BP normally runs on 100s * started on midodrine (6) Pneumonia: Code(s): J18.9 - Pneumonia, unspecified organism Status: Acute Assessment and Plan: * as noted by imaging studies to date * follow cultures * on antibiotics Not much else to add -- will continue to follow from a distance. Subjective Date/time seen: 12/16/22 09:37 Interval history: Follow-up for acute rhabdomyolysis. CPK levels continue to down trend with current therapy/interventions; moved out ICU yesterday; renal function stable with excellent urine output noted; no apparent distress noted at this time. Exam Narrative: General: thin WD/WN transgender female in NAD Heart: normal S1 and S2; no rub Lungs: clear to auscultation Abdomen: soft, nontender, nondistended, positive bowel sounds Extremities: no cyanosis or clubbing; no edema Skin: warm and intact Objective Data Vital Signs Vital Signs: Vital Signs Temp Pulse Resp BP Pulse Ox O2 Del Method FiO2 12/16/22 08:00 97.6 F 62 24 H 94/50 L 97 12/16/22 06:00 66 12/16/22 04:00 59 L 12/16/22 02:00 61 12/16/22 04:00 98.3 F 70 16 91/41 L 98 12/16/22 00:00 98.3 F 65 16 96/54 L 98 12/16/22 00:00 57 L 12/15/22 22:00 71 12/15/22 20:00 63 12/15/22 20:00 97.8 F 63 16 101/51 L 100 12/15/22 18:47 97.6 F 57 L 19 93/49 L 100 12/15/22 18:00 57 L 12/15/22 16:00 Room Air 12/15/22 12:00 Room Air 12/15/22 16:00 58 L 12/15/22 14:00 56 L 12/15/22 12:00 59 L 12/15/22 16:00 98.6 F 59 L 21 H 95/58 L 97 12/15/22 13:40 63 18 94/44 L 98 12/15/22 12:00 98.5 F 63 13 97/62 L 99
[2022-12-16] MEDS: ALTEPLASE 2 MG VIAL (CATHFLO) IV PUSH (12:35)
--- NOTE | 2022-12-16 14:44 | PM.IMPN ---
Progress Note: A&P Assessment and Plan (1) Acute respiratory failure: Code(s): J96.00 - Acute respiratory failure, unspecified whether with hypoxia or hypercapnia Status: Acute Assessment and Plan: Acute respiratory failure likely related to status epilepticus, cardiac arrest -initial ABG showed a pH of 6.7 -ABGs this morning much improved with pH of 7.34, pCO2 of 29, PO2 of 107, HC03 16.1, O2 sats 97.8%. -chest x-ray this morning shows hazy left infrahilar airspace disease findings are consistent with pneumonia, either lingula or left lower lobe. -patient received Unasyn in the ER x1 dose -continue cefepime, vancomycin and Flagyl (12/12) -12/12/2022: CT scan of the abdomen and pelvis showed pneumonia involving the upper lobes and lower lobes, left worse than right. -chest x-ray this morning: ?Improvement of left lower lung infiltrate since 12/12/2022? -Sedated with fentanyl and propofol -patient was placed on SBT, started on Precedex infusion, fentanyl and propofol discontinue -12/13: patient was successfully extubated resolved, on cefepime + flagyl, would discharge on Augmentin and Flagyl tomorrow, end date 12/20 (2) Pneumonia: Code(s): J18.9 - Pneumonia, unspecified organism Status: Acute Assessment and Plan: Aspiration pneumonia, abx as above de-escalated to cefepime + flagyl, d/c vanc 12/15 (3) Status epilepticus, generalized convulsive: Code(s): G40.901 - Epilepsy, unspecified, not intractable, with status epilepticus Status: Acute Assessment and Plan: Patient presented with status epilepticus, with seizure activity > 30 minutes. Patient had not been taking her seizure medications -currently on valproic acid 500 mg IV q.6 hours -Keppra 500 mg IV q.12 hours - appreciate neurology consult -no seizure since admission (4) Cardiac arrest: Code(s): I46.9 - Cardiac arrest, cause unspecified Status: Acute Assessment and Plan: Patient had a brief cardiac arrest which she received CPR, epinephrine x2 before obtaining ROSC. Likely PE arrest secondary to hypoxia due to status epilepticus/altered mental status Patient was following commands in the ER, was not a candidate for targeted temperature management Currently in sinus rhythm Appreciate cardiology following the pt 12/12: echocardiogram Summary ? 1. Complete two-dimensional, color flow and Doppler transthoracic echocardiogram is performed. ? 2. Left ventricular chamber dimension is normal. ? 3. Left ventricular systolic function is normal, estimated at 55-60%. ? 4. There is no increased left ventricular wall thickness. ? 5. The left ventricular diastolic function is normal. ? 6. Dilated inferior vena cava with <50% collapse upon inspiration consistent with elevated right atrial pressure, 15 mmHg. ? 7. Recommend limited echo once the patient is extubated to re-evaluate her EF and her aortic valve as the image quality is suboptimal given off axis imaging since the patient is ventilated and supine. Repeat echo 12/16 (5) Acute kidney injury: Code(s): N17.9 - Acute kidney failure, unspecified Status: Acute Assessment and Plan: Patient presented with acute kidney injury likely related to cardiac arrest, status epilepticus, hypovolemia, infection/sepsis Resolved, monitor (6) Rhabdomyolysis: Qualifiers: Rhabdomyolysis type: non-traumatic Qualified Code(s): M62.82 - Rhabdomyolysis Code(s): M62.82 - Rhabdomyolysis Status: Acute Assessment and Plan: Elevated CK levels likely related to tonic-clonic seizures and status epilepticus on admission Continue to monitor, improving (7) Transaminitis: Code(s): R74.01 - Elevation of levels of liver transaminase levels Status: Acute Assessment and Plan: Transaminitis likely related to hypotension secondary to cardiac arrest/hypoperfusion 12/12 RUQ ultrasound: Mildly echogenic right k
--- NOTE | 2022-12-16 15:34 | PCCARD ---
CANCELLED ECHO ORDERED BY DR. NDIAYE 12/15/22. LEFT HER A MESSAGE THE PATIENT HAD AN ECHO 12/12/22 AND ALSO A LIMIT ECHO FOR LV FUNCTION AND TO CHECK THE AORTIC VALVE - WAS DONE 12/15/22 WITH GOOD LV FUNCTION AND AORTIC VALVE.
--- NOTE | 2022-12-16 18:25 | PDONCCN ---
HPI - Date of Consult Date/Time: 12/16/22 18:25 Requesting Physician: Mckenzie Medellin DO Primary Care Provider: UNKNOWN,DOCTOR - Consult Narrative Reason for consult: Iron deficiency anemia and thrombocytopenia Narrative: Yee Clemons is a 22 year old transgender female with history of panic disorder, anxiety, OCD and epilepsy brought into the ER with status post epilepticus lasting for over 30 minutes duration. According the family she has a history of anemia for long time. She does not have any menstrual bleeding. No melena hematochezia. She occasionally drinks alcohol and taking lithium as needed. She frequently smokes marijuana. CT scan done in the ER showed bilateral pneumonia. Labs showed elevated liver enzymes and ultrasound of abdomen showed mild echogenic right kidney consistent with chronic medical renal disease. Low labs on admission showed normal platelet of [id number] and hemoglobin of 12.5 now dropped down to 88,000 platelet count with hemoglobin of 9.3. Creatinine normal at 0.8 creatinine kinase is slowly coming down. Iron study showed significant iron deficiency. According the patient family she was taking oral iron but stopped taking it recently. 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 Family History: Family History (Last Reviewed 12/12/22 @ 17:39 by Ana Alva MD) Father Alcoholism Mother Coronary artery disease Nonocclusive Hypertension Diabetes mellitus Other Pulmonary embolism, Onset Age: 37 Grandparent HIT (heparin-induced thrombocytopenia) - Social History Social History: Social History (Last Reviewed 12/14/22 @ 10:16 by Kyle Gonzales MD) Gender Identity: Gender identity (if verbalized by the patient): Female Alcohol Use: Alcohol intake: unknown Substance Use: Substance use: current Substance use type: marijuana Others: Spiritual care concerns: No Smoking Status: Smoking status: Never smoker Exam - Vital Signs Vital Signs - 24 hr 12/15/22 18:47 12/15/22 20:00 12/15/22 20:00 Temperature 36.4 C 36.6 C Pulse Rate 57 L 63 63 Respiratory Rate 19 16 Blood Pressure 93/49 L 101/51 L Pulse Oximetry 100 100 Oxygen Delivery 12/15/22 22:00 12/16/22 00:00 12/16/22 00:00 Temperature 36.8 C Pulse Rate 71 57 L 65 Respiratory Rate 16 Blood Pressure 96/54 L Pulse Oximetry 98 Oxygen Delivery 12/16/22 04:00 12/16/22 02:00 12/16/22 04:00 Temperature 36.8 C Pulse Rate 70 61 59 L Respiratory Rate 16 Blood Pressure 91/41 L Pulse Oximetry 98 Oxygen Delivery 12/16/22 06:00 12/16/22 08:00 12/16/22 08:00 Temperature 36.4 C Pulse Rate 66 62 Respiratory Rate 24 H Blood Pressure 94/50 L Pulse Oximetry 97 Oxygen Delivery Room Air 12/16/22 08:00 12/16/22 10:00 12/16/22 11:25 Temperature 36.2 C L Pulse Rate 64 62 65 Respiratory Rate 20 Blood Pressure 94/50 L Pulse Oximetry 98 Oxygen Delivery 12/16/22 12:00 12/16/22 12:00 12/16/22 14:00 Temperature Pulse Rate 63 57 L Respiratory Rate Blood Pressure Pulse Oximetry Oxygen Delivery Room Air 12/16/22 16:00 12/16/22 16:00 12/16/22 16:00 Temperature 36.3 C L Pulse Rate 63 69 Respiratory Rate 14 Blood Pressure 95/58 L Pulse Oximetry 96 Oxygen Del
[2022-12-16 19:29] LABS: Reticulocyte Hemoglobin Conten 31.9 pg (28.2-35.7); Reticulocyte Percent 0.97 % (0.7-4.3); Reticulocytes Absolute 0.03 M/mm3 (0.02-0.1)
[2022-12-16 19:35] LABS: Lactate Dehydrogenase 303 U/L (120-246)
[2022-12-17] VITALS (15 sets, daily range): BP systolic 95–101; BP diastolic 50–60; PULSE 58–81; RESP 15–20; TEMP 36.6–37.2; O2SAT 96–100
[2022-12-17] MEDS: DEXTROSE 5%/0.9% SOD CHL 1,000 ML 100 ML IV CONT (04:16)
[2022-12-17] MEDS: CEFEPIME 2 GM/NS 50 ML 2 GM/50 ML BAG IVPB ×2 (04:16→14:12)
[2022-12-17] MEDS: VALPROIC ACID INJ 500 MG in DEXTROSE 5% 100 ML 100 MG IVPB ×2 (04:17→08:26)
[2022-12-17] MEDS: metroNIDAZOLE 500 MG/ISO 100ML 500 MG/100 ML BAG 100 MG IVPB ×4 (04:17→20:53)
[2022-12-17] MEDS: CENTRAL LINE FLUSH 10 ML IV PUSH (04:21)
[2022-12-17 06:01] LABS: Valproic Acid 29.8 ug/mL (50-120)
[2022-12-17] MEDS: MIDODRINE HCL 10 MG TABLET PO ×3 (08:26→16:47)
[2022-12-17] MEDS: levETIRAcetam 500MG/NACL 100ML 500 MG/100 ML BAG 400 MG IVPB (08:26)
[2022-12-17] MEDS: busPIRone HCL 5 MG TABLET 15 MG FEED TUBE ×2 (08:26→16:47)
[2022-12-17] MEDS: PANTOPRAZOLE SODIUM IV 40 MG VIAL IV PUSH ×2 (08:27→20:53)
[2022-12-17] MEDS: IRON SUCROSE COMPLEX 500 MG in SODIUM CHLORIDE 0.9% IV 250 ML 78.57 MG IVPB (09:05)
--- NOTE | 2022-12-17 12:06 | PM.IMPN ---
Progress Note: A&P Assessment and Plan (1) Acute respiratory failure: Code(s): J96.00 - Acute respiratory failure, unspecified whether with hypoxia or hypercapnia Status: Acute Assessment and Plan: Acute respiratory failure likely related to status epilepticus, cardiac arrest. Patient intubated in the ED for airway protection. -initial ABG showed a pH of 6.7 -CXR clear on admission but CT the next day showing PNA involving bilateral upper and lower lobes L>R. Concern for aspiration. -patient received Unasyn in the ER x1 dose then cefepime, vancomycin and Flagyl (12/12) -UCx 12/11: negative. -BCx 12/12: 1of2 GPB -MRSA screen 12/12: negative -Sputum 12/13: MSSA -12/13: patient was successfully extubated Remains on cefepime + flagyl; Vanco stopped. Follow up on BCx result but suspect contaminant. Change to oral abx once culture result known. (2) Pneumonia: Code(s): J18.9 - Pneumonia, unspecified organism Status: Acute Assessment and Plan: Aspiration pneumonia related to status epileticus. On room air. CXR 12/16 showing stable airspace disease in left mid and lower lung zones. As above (3) Hypotension: Code(s): I95.9 - Hypotension, unspecified Status: Acute Assessment and Plan: BP soft with SBP 90's. Currently on IV fluids and midodrine. Patient with chronically low BP. Not on midodrine at home. Wean off IV fluids as BP tolerates. Contineu Midodrine. (4) Status epilepticus, generalized convulsive: Code(s): G40.901 - Epilepsy, unspecified, not intractable, with status epilepticus Status: Acute Assessment and Plan: Patient presented with status epilepticus, with seizure activity > 30 minutes. Patient had not been taking her seizure medications -HCT showing normal brain -currently on valproic acid 500 mg IV q.6 hours and Keppra 500 mg IV q.12 hours -appreciate neurology consult -no seizure since admission Transition to oral agents (5) Cardiac arrest: Code(s): I46.9 - Cardiac arrest, cause unspecified Status: Acute Assessment and Plan: Patient had a brief cardiac arrest which she received CPR, epinephrine x2 before obtaining ROSC. Likely cardiopulm arrest secondary to hypoxia/acidosis due to status epilepticus -Patient was following commands in the ER, was not a candidate for targeted temperature management -Appreciate cardiology following the pt -Echo 12/12: EF 55-60% with elevated right atrial pressure -Repeat echo 12/16: normal with EF 65-70% Resolved (6) Acute kidney injury: Code(s): N17.9 - Acute kidney failure, unspecified Status: Acute Assessment and Plan: Patient presented with acute kidney injury likely related to cardiac arrest, status epilepticus, hypovolemia and rhabdo. Abd US showing mildly echogenic right kidney Nephrology following and appreciate their input Renal function normal now Follow (7) Rhabdomyolysis: Qualifiers: Rhabdomyolysis type: non-traumatic Qualified Code(s): M62.82 - Rhabdomyolysis Code(s): M62.82 - Rhabdomyolysis Status: Acute Assessment and Plan: Elevated CK levels likely related to tonic-clonic seizures and status epilepticus on admission. -TCK >16K -levels trending down Continue to monitor (8) Transaminitis: Code(s): R74.01 - Elevation of levels of liver transaminase levels Status: Acute Assessment and Plan: Transaminitis likely related to hypotension secondary to cardiac arrest/hypoperfusion and rhabdomyolysis -AST to 1279 and ALT 377 RUQ US 12/12: Mildly echogenic right kidney, correlate for chronic medical renal disease, no other significant findings Hepatitis panel is negative Improving. Continue to monitor (9) Anemia: Code(s): D64.9 - Anemia, unspecified Status: Acute Assessment and Plan: Anemia with drop in Hb to 8.8. hgb on admission was 12.5. Plt count was normal o
[2022-12-17] MEDS: DIVALPROEX SODIUM ER 500 MG TAB.24H 1000 MG PO (16:48)
[2022-12-17] MEDS: levETIRAcetam 500 MG TABLET PO (20:53)
[2022-12-18] VITALS (10 sets, daily range): BP systolic 93–109; BP diastolic 48–57; PULSE 55–77; RESP 12–16; TEMP 36.1–36.6; O2SAT 96–99
[2022-12-18] MEDS: CEFEPIME 2 GM/NS 50 ML 2 GM/50 ML BAG IVPB (04:05)
[2022-12-18] MEDS: metroNIDAZOLE 500 MG/ISO 100ML 500 MG/100 ML BAG 100 MG IVPB ×2 (04:05→09:01)
[2022-12-18 05:20] LABS: Basophils Absolute Auto 0.1 K/mm3 (0.0-0.1); Basophils Percent Auto 0.8 % (0.2-1.2); Eosinophils Absolute Auto 0.2 K/mm3 (0-0.3); Eosinophils Percent Auto 2.2 % (0-4.4); Hematocrit 27.2 % (37.0-47.0); Immature Granulocyte Absolute 0.13 K/mm3 (0.00-0.031); Immature Granulocyte Percent A 1.8 % (0-0.5); Lymphocytes Absolute Auto 2.64 K/mm3 (0.9-3.2); Lymphocytes Percent Auto 36.1 % (18.3-44.2); Mean Corpuscular HGB Conc 33.1 g/dl (32-36); Mean Corpuscular Hemoglobin 32.4 pg (26-34); Mean Corpuscular Volume 97.8 fl (80-100); Mean Platelet Volume 10.4 fl (7.4-10.4); Monocytes Absolute Auto 0.7 K/mm3 (0.1-0.6); Monocytes Percent Auto 9.3 % (2.6-8.5); Neutrophils Absolute Auto 3.7 K/mm3 (1.3-6.7); Neutrophils Percent Auto 49.8 % (45.5-73.1); Platelet Count Result 136 k/mm3 (150-375); Red Blood Count 2.78 M/mm3 (4.2-5.4); Red Cell Distribution Width 11.9 % (11.5-14.5); White Blood Count 7.3 K/mm3 (4.5-10.0)
[2022-12-18 05:30] LABS: Alanine Aminotransferase 139 U/L (6-35); Albumin Level 2.5 g/dL (3.5-5.1); Alkaline Phosphatase 54 U/L (38-126); Anion Gap 3 mmol/L (8-16); Aspartate Amino Transferase 171 U/L (14-36); Bilirubin,Total 0.3 mg/dL (0.2-1.3); Calcium 8.5 mg/dL (8.4-10.2); Carbon Dioxide 34 mmol/L (22-30); Chloride 104 mmol/L (98-107); Creatine Kinase 1109 U/L (30-135); Estimated CRCL calculation 102 ml/min; Estimated Glomerular Filt Rate > 60; Glucose 78 mg/dL (65-110); Sodium 141 mmol/L (137-145)
[2022-12-18 07:24] LABS: Blood Urea Nitrogen < 2 mg/dL (7-17)
[2022-12-18] MEDS: busPIRone HCL 5 MG TABLET 15 MG FEED TUBE (08:58)
[2022-12-18] MEDS: MIDODRINE HCL 10 MG TABLET PO ×2 (08:58→12:37)
[2022-12-18] MEDS: DIVALPROEX SODIUM ER 500 MG TAB.24H 1000 MG PO (08:59)
[2022-12-18] MEDS: levETIRAcetam 500 MG TABLET PO (09:00)
[2022-12-18] MEDS: PANTOPRAZOLE SODIUM IV 40 MG VIAL IV PUSH (09:01)
[2022-12-18] MEDS: NEOMYCIN/POLYMYXIN/BACITRACIN OINTMENT 15 GM TUBE 1 APPLIC TOPICAL (09:01)
[2022-12-18] MEDS: POTASSIUM CHLORIDE 20 MEQ ER TABLET 40 MEQ PO (09:10)
[2022-12-18] MEDS: IRON SUCROSE COMPLEX 500 MG in SODIUM CHLORIDE 0.9% IV 250 ML 78.57 MG IVPB (09:11)
--- NOTE | 2022-12-18 09:47 | PM.PNCARD ---
Progress Note: A&P Assessment and Plan (1) Cardiac arrest: Code(s): I46.9 - Cardiac arrest, cause unspecified Status: Acute Assessment and Plan: Possible PEA arrest due to hypoxia from status epilepticus. Echo showed normal LV size and function, no valve pathology. Cardiology will sign off. Please call with questions. (2) Status epilepticus, generalized convulsive: Code(s): G40.901 - Epilepsy, unspecified, not intractable, with status epilepticus Status: Acute Assessment and Plan: Neurology has been consulted. (3) Acute respiratory failure: Code(s): J96.00 - Acute respiratory failure, unspecified whether with hypoxia or hypercapnia Status: Acute Assessment and Plan: Extubated (4) Pneumonia: Code(s): J18.9 - Pneumonia, unspecified organism Status: Acute Assessment and Plan: Most likely from aspiration. Management as per ICU team. (5) Rhabdomyolysis: Qualifiers: Rhabdomyolysis type: non-traumatic Qualified Code(s): M62.82 - Rhabdomyolysis Code(s): M62.82 - Rhabdomyolysis Status: Acute (6) Acute kidney injury: Code(s): N17.9 - Acute kidney failure, unspecified Status: Acute Subjective Date/time seen: 12/18/22 09:47 Interval history: 22-year-old transgender female with a past medical history of borderline personality disorder, OCD, anxiety and panic disorder, as well as social pragmatic communication disorder and epilepsy who presented to the ER via EMS from boyfriend's house with status epilepticus with seizure lasting 30 minutes. Date of service 12/14/2022: Extubated. Complains of chest soreness. wants Lombardo out. No shortness of breath Date of service 12/18/2022: Feels good today, no complaints. Wants to go home. Review of Systems Review of Systems: ROS unobtainable: Yes unobtainable due to endotracheal tube and unobtainable due to mental status Constitutional: Constitutional: Denies lethargy Cardiovascular: Cardiovascular: Reports chest pain and Denies dyspnea on exertion Respiratory: Respiratory: Denies dyspnea on exertion Gastrointestinal: Gastrointestinal: Denies abdominal pain Exam Const: General: no acute distress HENMT: Face/Nose/Sinus: Normal nares present Mouth: Yes moist mucous membranes Eyes: Sclera: sclerae normal Neck: Neck: supple Resp: Effort & Inspection: normal respiratory effort Auscultation: clear to auscultation bilaterally Cardio: Rate: regular rate Rhythm: regular rhythm Heart sounds: no murmurs GI: Inspection: non-distended Auscultation: normal bowel sounds Skin: General skin exam: normal color Neuro: Speech: normal speech Extrem: General: normal to inspection Psych: Mental Status: mental status grossly normal Objective Data Vital Signs Vital Signs: Vital Signs - 24 hr 12/17/22 10:00 12/17/22 11:56 12/17/22 12:00 Temperature 37.0 C Pulse Rate 68 64 65 Respiratory Rate 20 Blood Pressure 99/60 L Pulse Oximetry 96 Oxygen Delivery 12/17/22 12:00 12/17/22 14:00 12/17/22 16:00 Temperature Pulse Rate 81 61 Respiratory Rate Blood Pressure Pulse Oximetry Oxygen Delivery Room Air 12/17/22 16:00 12/17/22 16:00 12/17/22 18:00 Temperature 36.6 C Pulse Rate 61 67 Respiratory Rate 16 Blood Pressure 97/53 L Pulse Oximetry 98 Oxygen Delivery Room Air 12/17/22 20:03 12/17/22 20:00 12/17/22 20:00 Temperature 36.6 C Pulse Rate 60 63 Respiratory Rate 15 Blood Pressure 101/50 L Pulse Oximetry 100 Oxygen Delivery Room Air 12/18/22 00:08 12/17/22 22:00 12/18/22 00:00 Temperature 36.3 C L Pulse Rate 75 64 57 L Respiratory Rate 16 Blood Pressure 95/50 L Pulse Oximetry 99 Oxygen Delivery 12/18/22 00:00 12/18/22 02:00 12/18/22 04:06 Temperature 36.1 C L Pulse Rate 62 61 Respiratory Rate 16 Blood Pressure 93/48 L Pulse Oximetry 97 Oxy
--- NOTE | 2022-12-18 11:54 | PCNFU ---
Nutrition Follow-Up Complete: Inadequate energy intake related to NPO status, mechanical ventilation as evidenced by need for full tube feeding Goal:Meet estimated nutrition need Pt is meeting goal, continue with same goal. Pt current nutrition is Regular. Nutrition recommendation: continue with current plan of care Last recorded weight is 60.2 kg. Bowel Motility: +BM 12/17 Labs Reviewed: Hgb:9.0, HCT:27.2, Alb:2.5, K:3.0, BUN:2 Meds Noted: lovenox, protonix, zofran Skin: no skin issues noted Additional Notes: Pt is on a regular diet, intake charted 50-75%. continue to encourage good po intake. Monitor intake, wt, labs. Follow up in 7 days.
--- NOTE | 2022-12-18 13:31 | PM.DS ---
DS: Admitting Diagnosis Discharge Date 12/18/22 Admitting Diagnosis Cardiac arrest, status epilepticus DS: Discharge Diagnosis Discharge Diagnosis (1) Acute respiratory failure: Code(s): J96.00 - Acute respiratory failure, unspecified whether with hypoxia or hypercapnia Status: Acute (2) Pneumonia: Code(s): J18.9 - Pneumonia, unspecified organism Status: Acute (3) Hypotension: Code(s): I95.9 - Hypotension, unspecified Status: Acute (4) Status epilepticus, generalized convulsive: Code(s): G40.901 - Epilepsy, unspecified, not intractable, with status epilepticus Status: Acute (5) Cardiac arrest: Code(s): I46.9 - Cardiac arrest, cause unspecified Status: Acute (6) Acute kidney injury: Code(s): N17.9 - Acute kidney failure, unspecified Status: Acute (7) Rhabdomyolysis: Qualifiers: Rhabdomyolysis type: non-traumatic Qualified Code(s): M62.82 - Rhabdomyolysis Code(s): M62.82 - Rhabdomyolysis Status: Acute (8) Transaminitis: Code(s): R74.01 - Elevation of levels of liver transaminase levels Status: Acute (9) Anemia: Code(s): D64.9 - Anemia, unspecified Status: Acute (10) Thrombocytopenia: Code(s): D69.6 - Thrombocytopenia, unspecified Status: Acute (11) Seizure: Code(s): R56.9 - Unspecified convulsions Status: Chronic DS: Summary Hospital Course Reason for hospitalization: 22-year-old transgender female with borderline personality disorder, OCD, anxiety and panic disorder, as well as social pragmatic communication disorder and epilepsy who presented to the ER via EMS from boyfriend's house with status epilepticus lasting 30 minutes. Please see H&P for details. Hospital Course: Acute respiratory failure likely related to status epilepticus, cardiac arrest. Patient intubated in the ED for airway protection. Iinitial ABG showed a pH of 6.7. CXR was clear on admission but CT the next day showing PNA involving bilateral upper and lower lobes L>R with concerns for aspiration PNA. Patient received Unasyn in the ER x1 dose then cefepime, vancomycin and Flagyl (12/12). UCx was negative. BCx 1of2 was positive for microbacterium felt to be a contaminant. MRSA screen was negative. Sputum grew MSSA. Patient was stablized and improved. She was successfully extubated 12/13/22. She was weaned to room air. Aspiration pneumonia related to status epilepticus. She was treated with cefepime + flagyl; Vanco stopped. She completed about 7 days of IV antibiotics before changing to oral regiment. She was noted to be hypotensive with SBP 90's. Was treated with IV fluids and midodrine. Patient with chronically low BP per patient and family. Weaned off IV fluids and able to decrease dose of Midodrine. She has been walking in the halls without symptoms. Patient presented with status epilepticus, with seizure activity > 30 minutes.? Patient had not been taking her seizure medications. HCT showing normal brain Treated with valproic acid 500 mg IV q.6 hours and Keppra 500 mg IV q.12 hours. Neurology consulted and appreciate their input. No seizure since admission. She was transtioned to oral agents. VPA level was 30. Patient had a brief cardiac arrest which she received CPR, epinephrine x2 before obtaining ROSC.?Likely cardiopulmonary arrest secondary to hypoxia/acidosis due to status epilepticus. Patient was following commands in the ER and was not a candidate for targeted temperature management. Cardiology consulted and appreciate their input. Echo 12/12: EF 55-60% with elevated right atrial pressure. Repeat echo 12/16: normal with EF 65-70%. Patient presented with acute kidney injury likely related to cardiac arrest, status epilepticus, hypovolemia and rhabdomyolysis. Abd US showing mildly echogenic right kidney. Nephrology following and appreciate their input. Renal function normal now. UA noted and UCx negative
[2022-12-18] MEDS: metroNIDAZOLE 250 MG TABLET 500 MG PO (14:35)
[2022-12-20 11:46] LABS: Heparin Induced Platelet Antib Negative (Negative)
[2022-12-22 04:57] LABS: Haptoglobin 152 mg/dL (43-212)
--- NOTE | 2022-12-23 10:00 | PC.NURSE ---
Heparin Induced Plt AB- negative. Dr. Mis campos.
== END 2022-12-18 14:42 | disposition home or self-care (01) | DRG 53 ==
LOC: ANHED 20:38 → ANHICU 12-12 00:13 → ANHIMU 12-18 11:47 → ANHICU 12-19 09:05 → ANHIMU 12-19 09:05
PROVIDERS: Internal Medicine; Internal Medicine Hematology & Oncology; Student in an Organized Health Care Education/Training Program; Admitting Provider Internal Medicine; Emergency Provider Emergency Medicine; Visit Provider Internal Medicine
DX: G40.401 Other generalized epilepsy and epileptic syndromes, not intractable, with status epilepticus (principal); J96.01 Acute respiratory failure with hypoxia; I46.8 Cardiac arrest due to other underlying condition; K72.00 Acute and subacute hepatic failure without coma; J69.0 Pneumonitis due to inhalation of food and vomit; R65.21 Severe sepsis with septic shock; A41.9 Sepsis, unspecified organism; E87.21 Acute metabolic acidosis; D63.8 Anemia in other chronic diseases classified elsewhere; D68.9 Coagulation defect, unspecified; N17.8 Other acute kidney failure; M62.82 Rhabdomyolysis; I95.9 Hypotension, unspecified; D69.59 Other secondary thrombocytopenia; B95.61 Methicillin susceptible Staphylococcus aureus infection as the cause of diseases classified elsewhere; R74.01 Elevation of levels of liver transaminase levels; F42.9 Obsessive-compulsive disorder, unspecified; D50.8 Other iron deficiency anemias; F60.3 Borderline personality disorder; F41.0 Panic disorder [episodic paroxysmal anxiety]; F80.82 Social pragmatic communication disorder; F64.0 Transsexualism; Z79.890 Hormone replacement therapy; Z91.148 Patient's other noncompliance with medication regimen for other reason
CPT/HCPCS: 31500; 36415; 36556; 36600; 70450; 71045; 71260; 74177; 76705; 80048; 80053; 80074; 80164; 80178; 80185; 80202; 80307; 81001; 82274; 82375; 82550; 82607; 82746; 82805; 82948; 83010; 83050; 83540; 83550; 83605; 83615; 83735; 84100; 84443; 84478; 84484; 85025; 85046; 85055; 85380; 85384; 85610; 85730; 86022; 86023; 86140; 86850; 86880; 86900; 86901; 87040; 87070; 87081; 87086; 87147; 87181; 87186; 87205; 92950; 93005; 93306; 93308; 94002; 94003; 96361; 96365; 96366; 96367; 96368; 96375; 99291; A9270; C1751; C9113; G0378; J0461; J0613; J0692; J1650; J1756; J1836; J1953; J2310; J2405; J2704; J2997; J3010; J3370; J3475; J3480; J7030; J7042; J7050; J7070; J7120; Q9967